=== PATIENT | female | born 1970 | race African-American/Black ===

== ENCOUNTER 2017-02-14 12:01 | Emergency (ER) | payer OTHER ==
[2017-02-14 12:11] VITALS: TEMP 98.2; BMI 37.1
[2017-02-14 16:49] LABS: MCHC 29.8 g/dl (32.0-36.0); MEAN PLT VOLUME 8.7 fl (7.5-11.1); PLATELET COUNT 326 K/MM3 (134-434); RDW 19.7 % (11.6-15.6)
[2017-02-14 16:51] LABS: MCH 18.7 pg (25.7-33.7)
--- NOTE | 2017-02-14 17:08 | PDOC ---
History of Present Illness - General History Source: Patient, Old Records Exam Limitations: No Limitations - History of Present Illness Initial Comments: 02/14/17 18:56 The patient is a 46 year old female, with a significant past medical history of hypertension, diabetes, uterine fibroids, and chronic anemia with hx of transfusion, who presents to the emergency department with bilateral lower extremity swelling and generalized weakness for the past week. She states that she has not been taking her blood pressure medications, as well as her water pill because she ran out and has not been following up with her PMD for the past 7 months. She notes that she usually works on her feet most of the day, and the swelling is worse at the end of a work day but resolves after she wakes up in the AM. She states that she ended her period last week but it has returned again this week, which worries her because of her history of anemia. The patient denies chest pain, shortness of breath, headache and dizziness. Denies fever, chills, nausea, vomit, diarrhea, rectal bleeding, bpr, and constipation. Denies dysuria, frequency, urgency and hematuria. Allergies: None Past surgical history: None reported Social history: No alcohol, tobacco or drug use reported <Marco Albarado - Last Filed: 02/14/17 18:56> <Osman Walton - Last Filed: 02/14/17 19:24> - General Chief Complaint: Edema Stated Complaint: WEAKNESS, EDEMA TO LOWER EXTREMITIES Time Seen by Provider: 02/14/17 16:15 Past History <Marco Albarado - Last Filed: 02/14/17 18:56> - Past Medical History Anemia: No (TRANSFUSION NOVEMBER 2014) Asthma: No Cancer: No Cardiac Disorders: No CVA: No COPD: No CHF: No Dementia: No Diabetes: Yes GI Disorders: No Disorders: No HTN: Yes Hypercholesterolemia: No Liver Disease: No Seizures: No Thyroid Disease: No - Surgical History Abdominal Surgery: No Appendectomy: No Cardiac Surgery: No Cholecystectomy: No Lung Surgery: No Neurologic Surgery: No Orthopedic Surgery: No - Psycho/Social/Smoking Cessation Hx Anxiety: No Suicidal Ideation: No Smoking History: Never smoked Information on smoking cessation initiated: No Hx Alcohol Use: No Drug/Substance Use Hx: No Substance Use Type: None <Osman Walton - Last Filed: 02/14/17 19:24> - Past Medical History Allergies/Adverse Reactions: Allergies Allergy/AdvReac Type Severity Reaction Status Date / Time No Known Allergies Allergy Verified 02/14/17 12:11 Home Medications: Ambulatory Orders Budesonide/Formeterol Fumarate [SYMBICORT 160/4.5mcg -] 1 inh PO BID 03/10/15 Glyburide/Metformin HCl [Glucovance 2.5-500 mg Tablet] 1 each PO BID 03/10/15 Albuterol Sulfate Inhaler - [Ventolin HFA Inhaler -] 1 - 2 inh PO QID #1 inhaler 03/12/15 Ferrous Sulfate [Feosol] 325 mg PO BID #60 tab 03/12/15 Hydrochlorothiazide [Hctz -] 25 mg PO DAILY #30 tablet 03/12/15 Metoprolol Succinate [Toprol XL -] 200 mg PO DAILY #30 tab.sr.24h 03/12/15 Guaifenesin Dm [Robitussin Dm -] 10 ml PO Q6H PRN #1 bottle 02/14/17 Hydrochlorothiazide 25 mg PO DAILY #30 tablet 02/14/17 Losartan Potassium [Cozaar -] 50 mg PO DAILY #30 tablet 02/14/17 Metformin HCl 500 mg PO BID #60 tablet 02/14/17 Review of Systems - Review of Systems Able to Perform ROS?: Yes Comments:: 02/14/17 18:56 CONSTITUTIONAL: Reported: Generalized weakness. No reported: Fever, Chills, Diaphoresis, Malaise, Loss of Appetite HEENT: No reported: Rhinorrhea, Nasal Congestion, Throat Pain, Throat Swelling, Difficulty Swallowing, Mouth Swelling, Ear Pain, Eye Pain, Visual Changes CARDIOVASCULAR: No reported: Chest Pain, Syncope, Palpitations, Irregular Heart Rate, Lightheadedness, Peripheral Edema RESPIRATORY: No reported: Cough, Shortness of Breath, SOB with Exertion, Orthopnea, Wheezing , Stridor, Hemoptysis GASTROINTESTINAL: No reported: Abdominal pain, Abdominal Distension, Nausea, Vomiting, Diarrhea, Constipation, Melena, Hematochezia GENITOURINARY: No reported: Dysuria, Frequency, Urgency, Hesitancy, Flank Pain, Genital Pain MUSCULOSKELETAL: No reported: Myalgia, Arthralgia, Joint Swelling, Back pain, Neck Pain EXTREMITIES: Reported: Bilateral lower extremity swelling. SKIN: No reported: Rash, Itching, Pallor HEMEATOLOGIC/IMMUNOLOGIC: No reported: Easy Bleeding, Easy Bruising, Lymphadenopathy, Frequent infections ENDOCRINE: No reported: Unexplained Weight Gain, Unexplained Weight Loss, Heat Intolerance , Cold Intolerance NEUROLOGIC: No reported: Headache, Focal Weakness, Paresthesias, Vertigo, Lightheadedness, Unsteady Gait, Seizure, Mental Status Changes, Incontinence PSYCHIATRIC: No reported: Anxiety, Depression <Marco Albarado - Last Filed: 02/14/17 18:56> *Physical Exam - Vital Signs Last Vital Signs Temp Pulse Resp BP Pulse Ox 98.2 F 91 H 18 198/100 100 02/14/17 12:06 02/14/17 12:06 02/14/17 12:06 02/14/17 12:06 02/14/17 12:06 - Physical Exam Comments: 02/14/17 18:56 GENERAL: The patient is awake, alert, and fully oriented, Nontoxic - in no acute distress. HEAD: Normocephalic, atraumatic. EYES: extraocular movements intact, sclera anicteric, conjunctiva clear. ENT: Normal voice, Moist mucous membranes. NECK: Normal range of motion, supple LUNGS: Breath sounds equal, clear to auscultation bilaterally. No wheezes, no rhonchi, no rales. HEART: Regular rate and rhythm, without murmur, rub or gallop. ABDOMEN: Soft, nontender, normoactive bowel sounds. No guarding, no rebound.No CVA tenderness EXTREMITIES: Normal range of motion, pitting edema bl to knees. No clubbing or cyanosis. No cords, erythema, or tenderness. NEUROLOGICAL: No facial assymetry, Normal speech, movinga ll 4 extremities s[ ontaneously and symmetrically. PSYCH: Normal mood, normal affect. SKIN: Warm, Dry, normal turgor, <Marco Albarado - Last Filed: 02/14/17 18:56> - Vital Signs Last Vital Signs Temp Pulse Resp BP Pulse Ox 98.2 F 91 H 18 198/100 100 02/14/17 12:06 02/14/17 12:06 02/14/17 12:06 02/14/17 12:06 02/14/17 12:06 <Osman Walton - Last Filed: 02/14/17 19:24> Heart Score/ECG Review - ECG Impressions Comment:: 02/14/17 19:22 Twelve-lead EKG was performed and reviewed by me. There is normal sinus rhythm with a normal rate. Rate of [address] changes suggestive of acute ischemia <Osman Walton - Last Filed: 02/14/17 19:24> ED Treatment Course - LABORATORY CBC & Chemistry Diagram: 02/14/17 16:21 02/14/17 16:21 - ADDITIONAL ORDERS Additional order review: Laboratory Results 02/14/17 16:21 Sodium 139 Potassium 4.9 Chloride 107 Carbon Dioxide 22 Anion Gap 10 BUN 12 Creatinine 1.2 H Creat Clearance w eGFR 48.36 Random Glucose 238 H D Calcium 8.3 L Total Bilirubin 0.6 AST 31 ALT 36 Alkaline Phosphatase 283 H D Total Protein 7.0 Albumin 2.9 L D 02/14/17 16:21 RBC 3.99 MCV 63.0 L MCHC 29.8 L RDW 19.7 H D MPV 8.7 Neutrophils % 61.0 Lymphocytes % 22.0 D Monocytes % 12.0 H Eosinophils % 0.0 D <Marco Albarado - Last Filed: 02/14/17 18:56> - LABORATORY CBC & Chemistry Diagram: 02/14/17 16:21 02/14/17 16:21 - ADDITIONAL ORDERS Additional order review: 02/14/17 16:21 RBC 3.99 MCV 63.0 L MCHC 29.8 L RDW 19.7 H D MPV 8.7 Neutrophils % Y Lymphocytes % Y <Osman Walton - Last Filed: 02/14/17 19:24> Medical Decision Making - Medical Decision Making 02/14/17 18:51 pt presenting with le edema been off her htn and meds for several months pts labs reviewed noted for mild anemia will start pt back on her htn, dm meds will have pt fu with PMD I discussed the physical exam findings, ancillary test results and final diagnoses with the patient. I answered all of the patient's questions. The patient was satisfied with the care received and felt comfortable with the discharge plan and treatment plan. The patient will call their primary care physician within 24 hours to arrange follow-up and will return to the Emergency Department with any new, persistent or worsening symptoms. A portion of this note was documented by scribe services under my direction. I have reviewed the details of the note, within reason, and agree with the documentation with the following case summary and management plan written by me <Osman Walton - Last Filed: 02/14/17 19:24> *DC/Admit/Observation/Transfer - Attestations Scribe Attestion: 02/14/17 18:56 Documentation prepared by Marco Albarado, acting as medical education specialist for Osman Walton MD <Marco Albarado - Last Filed: 02/14/17 18:56> - Discharge Dispostion Admit: No <Osman Walton - Last Filed: 02/14/17 19:24> Diagnosis at time of Disposition: Anemia Qualifiers: Anemia type: unspecified type Qualified Code(s): D64.9 - Anemia, unspecified HTN (hypertension) Qualifiers: Hypertension type: essential hypertension Qualified Code(s): I10 - Essential ( primary) hypertension - Discharge Dispostion Disposition: HOME Condition at time of disposition: Improved - Prescriptions Prescriptions: Losartan Potassium [Cozaar -] 50 mg PO DAILY #30 tablet Hydrochlorothiazide 25 mg PO DAILY #30 tablet Metformin HCl 500 mg PO BID #60 tablet Guaifenesin Dm [Robitussin Dm -] 10 ml PO Q6H PRN #1 bottle PRN Reason: Cough - Referrals Referrals: [facility] [Provider Group] - Patient Instructions Printed Discharge Instructions: DI for High Blood Pressure Additional Instructions: Return to the emergency department immediately with ANY new, persistent or worsening symptoms. You MUST call and follow up with your doctor in 1 week for further evaluation of your symptoms. Results were discussed with you. Please make sure your doctor reviews the results of your emergency evaluation. Print Language: FRENCH
[2017-02-14 17:18] LABS: ALBUMIN 2.9 g/dl (3.4-5.0); CALCIUM 8.3 mg/dL (8.5-10.1); COCKROFT - GAULT 96.475; CREATININE 1.2 mg/dL (0.55-1.02)
[2017-02-14 17:21] LABS: BILIRUBIN,TOTAL 0.6 mg/dL (0.2-1.0)
[2017-02-14 17:58] LABS: ANISOCYTOSIS 1+; HYPOCHROMIA 3+; MICROCYTOSIS 2+; POLYCHROMASIA 1+
[2017-02-14 19:20] VITALS: BP 190/108; PULSE 89
[2017-02-14] MEDS ORDERED: LOSARTAN POTASSIUM 50 MG TABLET (FP) PO ONE (19:20)
[2017-02-14] MEDS ORDERED: HYDROCHLOROTHIAZIDE 25 MG TABLET (FP) PO ONE (19:20)
[2017-02-14] MEDS ORDERED: HYDROCHLOROTHIAZIDE 25 MG TABLET (FP) ONE (19:21)
[2017-02-14] MEDS ORDERED: LOSARTAN POTASSIUM 25 MG TABLET ONE (19:22)
--- NOTE | 2017-02-15 11:48 | EKG ---
Test Reason : Blood Pressure : / mmHG Vent. Rate : 090 BPM Atrial Rate : 090 BPM P-R Int : 176 ms QRS Dur : 082 ms QT Int : 388 ms P-R-T Axes : -07 084 045 degrees QTc Int : 474 ms POOR DATA QUALITY, INTERPRETATION MAY BE ADVERSELY AFFECTED NORMAL SINUS RHYTHM NORMAL ECG WHEN COMPARED WITH ECG OF 12-MAR-2015 12:21, NO SIGNIFICANT CHANGE WAS FOUND Confirmed by BETH AGARWAL, MEDHAT ([id number]) on 02/15/2017 11:48:37 AM Referred By: Confirmed By:MEDHAT CAMPOS MD
== END 2017-02-14 19:27 | disposition home or self-care (01) ==
LOC: JER 12:01
DX: I10 Essential (primary) hypertension (principal); D64.9 Anemia, unspecified; Z91.14 Patient's other noncompliance with medication regimen; E11.9 Type 2 diabetes mellitus without complications; Z79.84 Long term (current) use of oral hypoglycemic drugs
CPT/HCPCS: 36415; 80053; 84703; 85025; 93005; 93010; 99282-25

== ENCOUNTER 2017-03-14 11:26 | Inpatient (IN) | payer OTHER ==
[2017-03-14 11:33] VITALS: BMI 37.8
[2017-03-14] MEDS ORDERED: ENALAPRILAT DIHYDRATE 1.25 MG/1 ML VIAL IVPB ONE ×2 (13:08→15:30)
[2017-03-14] MEDS ORDERED: FUROSEMIDE 40 MG/4 ML INJECTABLE VIAL IVPUSH ONE (13:08)
--- NOTE | 2017-03-14 13:09 | PDOC ---
*Physical Exam - Vital Signs Last Vital Signs Temp Pulse Resp BP Pulse Ox 97.9 F 87 18 174/106 100 03/14/17 11:29 03/14/17 11:29 03/14/17 11:29 03/14/17 11:29 03/14/17 11:29 Medical Decision Making - Medical Decision Making 03/14/17 13:08 Patient seen and evaluated with the nurse practitioner. I agree with the overall evaluation, assessment, and management with the following summary of visit: 47-year-old female sent for elevated blood pressure, anasarca, anemia. Full workup, blood pressure control, admission.
[2017-03-14 13:38] LABS: MCH 22.5 pg (25.7-33.7); MCHC 31.5 g/dl (32.0-36.0); MEAN CELL VOLUME 71.6 fl (80-96); MEAN PLT VOLUME 9.3 fl (7.5-11.1); PLATELET COUNT 243 K/MM3 (134-434); RDW 27.6 % (11.6-15.6); WHITE BLOOD COUNT 5.2 K/mm3 (4.0-10.0)
[2017-03-14 13:51] LABS: ALBUMIN 3.1 g/dl (3.4-5.0); ANION GAP 9 (8-16); BILIRUBIN,TOTAL 0.8 mg/dL (0.2-1.0); CALCIUM 8.9 mg/dL (8.5-10.1); CO2 25 mmol/L (21-32); CREATININE 1.4 mg/dL (0.55-1.02); GLUCOSE,RANDOM 278 mg/dL (74-106); SGPT/ALT 36 U/L (12-78); TOT PROT 7.9 g/dl (6.4-8.2)
[2017-03-14 13:55] LABS: ALK PHOS 475 U/L (45-117); TROPONIN I < 0.02 ng/ml (0.00-0.05)
[2017-03-14 14:02] LABS: SGOT/AST 36 U/L (15-37)
[2017-03-14] MEDS ORDERED: ENALAPRILAT DIHYDRATE 2.5 MG/2 ML VIAL IVPB ONE ×2 (14:32→15:41)
[2017-03-14] MEDS ORDERED: FUROSEMIDE 40 MG/4 ML INJECTABLE VIAL ONE (14:33)
--- NOTE | 2017-03-14 14:33 | PDOC ---
History of Present Illness - General Chief Complaint: Edema Stated Complaint: PRESSURE PROBLEM (PCP SENT) Time Seen by Provider: 03/14/17 11:53 History Source: Patient Exam Limitations: No Limitations - History of Present Illness Initial Comments: 03/14/17 14:28 47-year-old female presents to the emergency room with complaints of worsening lower extremity edema associated with continual high blood pressure despite taking her medication. Patient states was seen here a few weeks ago for the same and was sent home to start her blood pressure and diabetic meds since she has been noncompliant for months. Patient states also went to see her HELP DESK TECHNICIAN secondary to vaginal bleeding since December that stopped about one week ago. Patient also states went to her drug counselor today to have an echo but had a blood pressure of 240/140 and was sent directly to the ER. Patient does state had blood work done last week by Dr. Hickey who she has an appointment with tomorrow and was also prescribed Lasix that she was supposed to start today but didn't. Patient has no complaints of shortness of breath, chest pain, dizziness , weakness, abdominal pain or nausea. Timing/Duration: getting worse Severity: moderate Associated Symptoms: reports: denies symptoms Past History - Past Medical History Allergies/Adverse Reactions: Allergies Allergy/AdvReac Type Severity Reaction Status Date / Time No Known Allergies Allergy Verified 03/14/17 11:33 Home Medications: Ambulatory Orders Ferrous Sulfate [Feosol] 325 mg PO BID #60 tab 03/12/15 Amlodipine Besylate [Norvasc -] 5 mg PO DAILY #30 tablet 03/22/17 Furosemide Injection [Lasix Injection -] 40 mg IVPUSH DAILY vial 03/22/17 Insulin (Levemir) [Levemir Vial] 15 units SQ BID #15 syringe 03/22/17 Losartan Potassium [Cozaar -] 50 mg PO DAILY #30 tablet MDD 1 03/22/17 Metoprolol Succinate [Toprol XL -] 50 mg PO DAILY #30 tab 03/22/17 Vitamin E - 800 unit PO AM #30 cap 03/22/17 Anemia: Yes (TRANSFUSION NOVEMBER 2014) Asthma: No Cancer: No Cardiac Disorders: No CVA: No COPD: No CHF: No Dementia: No Diabetes: Yes GI Disorders: No Disorders: No HTN: Yes Hypercholesterolemia: No Liver Disease: No Seizures: No Thyroid Disease: No - Surgical History Abdominal Surgery: No Appendectomy: No Cardiac Surgery: No Cholecystectomy: No Lung Surgery: No Neurologic Surgery: No Orthopedic Surgery: No - Psycho/Social/Smoking Cessation Hx Anxiety: No Suicidal Ideation: No Smoking History: Never smoked Hx Alcohol Use: No Drug/Substance Use Hx: No Substance Use Type: None Patient Lives Alone: No Lives with/in: spouse/SO Review of Systems - Review of Systems Able to Perform ROS?: Yes Constitutional: No: Symptoms Reported HEENTM: No: Symptoms Reported Respiratory: No: Symptoms reported Cardiac (ROS): Yes: Edema ABD/GI: No: Symptoms Reported Musculoskeletal: No: Symptoms Reported Integumentary: No: Symptoms Reported Neurological: No: Symptoms reported Endocrine: No: Symptoms Reported Hematologic/Lymphatic: No: Anemia *Physical Exam - Vital Signs Last Vital Signs Temp Pulse Resp BP Pulse Ox 97.9 F 83 16 187/110 100 03/14/17 11:29 03/14/17 13:00 03/14/17 13:00 03/14/17 13:00 03/14/17 13:00 - Physical Exam General Appearance: Yes: Nourished, Appropriately Dressed. No: Apparent Distress HEENT: positive: EOMI, JERED, TMs Normal, Pharynx Normal. negative: Pale Conjunctivae Neck: positive: Normal Thyroid, Supple, Other (no jvd) Respiratory/Chest: positive: Lungs Clear, Normal Breath Sounds. negative: Respiratory Distress, Accessory Muscle Use Cardiovascular: positive: Regular Rhythm, Regular Rate. negative: Murmur Gastrointestinal/Abdominal: positive: Soft. negative: Tenderness Musculoskeletal: negative: CVA Tenderness Extremity: positive: Normal Capillary Refill, Other (noted 3+ nonpitting edema to BLE at the knees extending to her lower abdomen). negative: Pedal Edema Integumentary: positive: Normal Color, Warm, Moist Neurologic: positive: Motor Strength 5/5 (ambulatory) Deep Tendon Reflexes: Knee (L): 2+, Knee (R): 2+ Heart Score/ECG Review - History History: Slightly suspicious - Electrocardiogram EKG: Normal - Age Age: 45-65 - Risk Factors Risk Factors Heart Score: Yes Hx Hypertension, Yes Hx Diabetes Based on the list above the patient has:: 1-2 risk factors - Troponin Troponin: </= normal limit - Score Heart Score - Total: 2 - ECG Intrepretation Rhythm: Regular Rhythm (nsr at 86. No acute findings) ED Treatment Course - LABORATORY CBC & Chemistry Diagram: 03/22/17 05:45 03/22/17 05:45 - ADDITIONAL ORDERS Additional order review: Laboratory Results 03/14/17 03/14/17 13:06 13:06 Sodium 136 Potassium 5.0 Chloride 102 Carbon Dioxide 25 Anion Gap 9 BUN 21 H D Creatinine 1.4 H Creat Clearance w eGFR 40.31 Random Glucose 278 H Calcium 8.9 Total Bilirubin 0.8 D AST 36 ALT 36 Alkaline Phosphatase 475 H D Creatine Kinase 108 Troponin I < 0.02 B-Natriuretic Peptide 1559.09 H Total Protein 7.9 Albumin 3.1 L Blood Type O POSITIVE Antibody Screen Negative 03/14/17 13:06 RBC 4.17 MCV 71.6 L MCHC 31.5 L RDW 27.6 H MPV 9.3 Neutrophils % 44.6 D Lymphocytes % 43.7 H D Monocytes % 6.2 Eosinophils % 4.3 D Basophils % 1.2 - RADIOLOGY Radiology Studies Ordered: Category Date Time Status DUPLEX VASCUL US-2LEGS [US] Stat Ultrasound 03/14/17 12:46 Taken Medical Decision Making - Critical Care Time Total Critical Care Time (minutes): 35 Critical Care Statement: The care of this patient involved high complexity decision making to prevent further life threatening deterioration of the patient 's condition and/or to evalute & treat vital organ system(s) failure or risk of failure. - Medical Decision Making 03/14/17 13:33 Patient sent here by drug counselor for hypertension urgency which she had a blood pressure 240/140 in the ED. Patient recently began her blood pressure and diabetic meds after being told that her blood pressure was elevated. Patient today had went to have her ultrasound of her pelvis secondary to prolonged vaginal bleeding and hasn't been with her PCP tomorrow. Patient concern for hypertensive urgency, CHF, and endorgan damage. Since patient took her medications this morning patient will be given 40 mg of Lasix IV push and enalapril IV 03/14/17 14:40 Laboratory Tests 03/11/15 03/12/15 03/12/15 05:45 05:40 05:40 WBC Hgb 9.2 L Hct MCV Plt Count Neutrophils % Lymphocytes % Sodium Potassium Chloride Carbon Dioxide Anion Gap BUN Creatinine 1.1 Random Glucose Alkaline Phosphatase B-Natriuretic Peptide 2352.68 H Albumin 05/16/17 05/16/17 06/13/17 16:21 16:21 13:06 WBC 5.2 Hgb 7.5 L D 9.4 L D Hct 29.9 L D MCV 71.6 L Plt Count 243 D Neutrophils % 44.6 D Lymphocytes % 43.7 H D Sodium Potassium Chloride Carbon Dioxide Anion Gap BUN Creatinine 1.2 H Random Glucose 238 H D Alkaline Phosphatase B-Natriuretic Peptide Albumin 03/14/17 13:06 WBC Hgb Hct MCV Plt Count Neutrophils % Lymphocytes % Sodium 136 Potassium 5.0 Chloride 102 Carbon Dioxide 25 Anion Gap 9 BUN 21 H D Creatinine 1.4 H Random Glucose 278 H Alkaline Phosphatase 475 H D B-Natriuretic Peptide 1559.09 H Albumin 3.1 L Call placed to the patient's PCP Dr. Hickey to discuss admission. 03/14/17 15:09 Patient received a second dose of 0.625 mg of enalapril IV push secondary to BP of 188/102. If patient remains elevated and 20 minutes will administer clonidine. Dr. Hickey admits to Dr. Ramos. Call placed 2 to service for admission. 03/14/17 17:[address] Quintanilla. And states the consult Dr. John caro drug counselor since patient's drug counselor does not come here and to order an echocardiogram. He also recommends upgrade to telemetry in case patient requires IV push medications to control her blood pressure 0 *DC/Admit/Observation/Transfer Diagnosis at time of Disposition: Hypertensive urgency, Anasarca - Discharge Dispostion Disposition: HOME Condition at time of disposition: Improved Admit: Yes - Prescriptions - Referrals
--- NOTE | 2017-03-14 15:21 | EKG ---
Test Reason : Blood Pressure : / mmHG Vent. Rate : 086 BPM Atrial Rate : 086 BPM P-R Int : 156 ms QRS Dur : 078 ms QT Int : 384 ms P-R-T Axes : 082 089 053 degrees QTc Int : 459 ms NORMAL SINUS RHYTHM NORMAL ECG WHEN COMPARED WITH ECG OF 14-FEB-2017 16:38, NO SIGNIFICANT CHANGE WAS FOUND Confirmed by ОЛЕГ ELLISON MD ([id number]) on 03/14/2017 3:21:36 PM Referred By: Confirmed By:ОЛЕГ ELLISON MD
[2017-03-14] MEDS ORDERED: cloNIDine HCL 0.1 MG TABLET PO ONE (15:30)
[2017-03-14] MEDS ORDERED: cloNIDine HCL 0.1 MG TABLET ONE (15:41)
[2017-03-14 17:13] LABS: URINE APPEARANCE CLEAR; URINE BILIRUBIN NEGATIVE (NEGATIVE); URINE COLOR STRAW; URINE GLUCOSE (UA) 3+ (NEGATIVE); URINE KETONE NEGATIVE (NEGATIVE); URINE LEUK ESTERASE NEGATIVE (NEGATIVE); URINE NITRITE NEGATIVE (NEGATIVE); URINE PROTEIN NEGATIVE (NEGATIVE); URINE UROBILINOGEN NEGATIVE E.U./dl (0.2-1.0)
[2017-03-14 17:19] LABS: URINE BLOOD 2+ (NEGATIVE)
[2017-03-14 17:24] LABS: URINE RBC 2 /hpf (0-3); URINE WBC <1 /hpf (3-5)
[2017-03-14] MEDS ORDERED: LOSARTAN POTASSIUM 50 MG TABLET (FP) PO SCH (18:45)
[2017-03-14] MEDS ORDERED: LOSARTAN POTASSIUM 25 MG TABLET ONE ×2 (19:31→22:59)
[2017-03-14 20:08] LABS: PLATELET ESTIMATE ADEQUATE (NORMAL)
[2017-03-14 20:09] LABS: ANISOCYTOSIS 3+; HYPOCHROMIA 1+; POLYCHROMASIA OCC; TARGET CELLS 1+
[2017-03-14 20:29] LABS: TROPONIN I < 0.02 ng/ml (0.00-0.05)
[2017-03-14] MEDS ORDERED: FERROUS SO4 325 MG TABLET (FP) ONE (22:59)
[2017-03-14] MEDS ORDERED: HEPARIN NA (PORCINE) 5,000 UNITS/ML 1ML VIAL ONE (22:59)
[2017-03-15] MEDS: FERROUS SO4 325 MG TABLET (FP) PO SCH ×3 (00:50→22:21)
[2017-03-15] MEDS: HEPARIN NA (PORCINE) 5,000 UNITS/ML 1ML VIAL SQ SCH ×3 (00:50→22:21)
[2017-03-15 07:37] LABS: BASOPHIL 1.3 % (0-2.0); EOSINOPHIL 7.5 % (0-4.5); MCH 22.6 pg (25.7-33.7); MCHC 31.2 g/dl (32.0-36.0); MEAN CELL VOLUME 72.4 fl (80-96); MEAN PLT VOLUME 9.1 fl (7.5-11.1); NEUTROPHILS 70.2 % (42.8-82.8); PLATELET COUNT 227 K/MM3 (134-434); RDW 27.7 % (11.6-15.6); WHITE BLOOD COUNT 4.3 K/mm3 (4.0-10.0)
[2017-03-15] MEDS ORDERED: metFORMIN HCL 500 MG TABLET (FP) ONE (07:48)
[2017-03-15] MEDS: metFORMIN HCL 500 MG TABLET (FP) PO SCH ×2 (07:52→17:15)
[2017-03-15 08:03] LABS: ANION GAP 9 (8-16); CALCIUM 8.8 mg/dL (8.5-10.1); CO2 26 mmol/L (21-32)
[2017-03-15 08:09] LABS: ALK PHOS 433 U/L (45-117); BILIRUBIN,TOTAL 0.7 mg/dL (0.2-1.0); CHOLESTEROL 196 mg/dL (50-200); COCKROFT - GAULT 68.425; CREATININE 1.6 mg/dL (0.55-1.02); LDL CHOLESTEROL (ONLY SJRH) 69 mg/dL (5-100); SGOT/AST 25 U/L (15-37); SGPT/ALT 30 U/L (12-78); TOT PROT 7.4 g/dl (6.4-8.2); TROPONIN I < 0.02 ng/ml (0.00-0.05)
[2017-03-15 08:17] LABS: GLUCOSE,RANDOM 381 mg/dL (74-106)
[2017-03-15] MEDS ORDERED: LOSARTAN POTASSIUM 50 MG TABLET (FP) PO SCH ×2 (08:31→10:00)
--- NOTE | 2017-03-15 08:35 | HP ---
Admitting History and Physical - Admission History of Present Illness: 47-year-old female presents to the emergency room with complaints of worsening lower extremity edema associated with continual high blood pressure despite taking her medication. Patient states was seen here a few weeks ago for the same and was sent home to start her blood pressure and diabetic meds since she has been noncompliant for months. Patient states also went to see her SOLE STAINER and discharge secondary to vaginal bleeding since December that stopped about one week ago. Patient also stents went to her transition teacher today to have an echo but had a blood pressure of 240/140 and was sent directly to the ER. Patient does state had blood work done last week by Dr. Hickey who she has an appointment with tomorrow and was also prescribed Lasix that she was supposed to start today but didn't. Patient has no complaints of shortness of breath, chest pain, dizziness , weakness, abdominal pain or nausea. - Past Medical History Cardiovascular: Yes: HTN Pulmonary: Yes: Bronchitis ...LMP: 03/02/15 Heme/Onc: Yes: Anemia Infectious Disease: Yes: Other (Bronchitis) Endocrine: Yes: Diabetes Mellitus - Smoking History Smoking history: Never smoked - Alcohol/Substance Use Hx Alcohol Use: No Home Medications - Allergies Allergies/Adverse Reactions: Allergies Allergy/AdvReac Type Severity Reaction Status Date / Time No Known Allergies Allergy Verified 03/14/17 11:33 - Home Medications Home Medications: Ambulatory Orders Glyburide/Metformin HCl [Glucovance 2.5-500 mg Tablet] 1 each PO BID 03/10/15 Ferrous Sulfate [Feosol] 325 mg PO BID #60 tab 03/12/15 Metoprolol Succinate [Toprol XL -] 200 mg PO DAILY #30 tab.sr.24h 03/12/15 Hydrochlorothiazide 25 mg PO DAILY #30 tablet 02/14/17 Losartan Potassium [Cozaar -] 50 mg PO DAILY #30 tablet 02/14/17 Metformin HCl 500 mg PO BID #60 tablet 02/14/17 Review of Systems - Review of Systems Cardiovascular: denies: Chest Pain, Palpitations Respiratory: denies: SOB Gastrointestinal: denies: Abdominal Pain Neurological: denies: Change in LOC, Change in Speech Physical Examination Vital Signs: Vital Signs Temperature 97.8 F 03/15/17 04:00 Pulse Rate 88 03/15/17 04:00 Respiratory Rate 26 H 03/15/17 04:00 Blood Pressure 160/93 03/15/17 04:00 O2 Sat by Pulse Oximetry (%) 100 03/14/17 19:20 Neck: Yes: Supple Cardiovascular: Yes: Regular Rate and Rhythm Respiratory: Yes: Regular, CTA Bilaterally Gastrointestinal: Yes: Normal Bowel Sounds, Soft. No: Tenderness Edema: No Neurological: Yes: Alert, Oriented Labs: CBC, BMP 03/15/17 06:34 03/15/17 06:34 Imaging - Results Cat Scan: Report Reviewed Problem List - Problems (1) Hypertensive urgency Assessment/Plan: OBSERVE ON CURRENT MEDS ECHO CARDIO Code(s): I16.0 - HYPERTENSIVE URGENCY (2) Anemia Assessment/Plan: W/U ORDERED MONITOR Code(s): D64.9 - ANEMIA, UNSPECIFIED Qualifiers: Anemia type: unspecified type Qualified Code(s): D64.9 - Anemia, unspecified (3) Fibroid (bleeding) (uterine) Assessment/Plan: CHECK ON SOLE STAINER W/U Code(s): D25.9 - LEIOMYOMA OF UTERUS, UNSPECIFIED (4) Alkaline phosphatase elevation Assessment/Plan: GI US Code(s): R74.8 - ABNORMAL LEVELS OF OTHER SERUM ENZYMES (5) Renal insufficiency Assessment/Plan: CR 1.4 MONITOR ON MEDS US Code(s): N28.9 - DISORDER OF KIDNEY AND URETER, UNSPECIFIED
[2017-03-15] MEDS: METOPROLOL SUCCINATE 100 MG TAB.SR.24H (FP) PO SCH (09:50)
[2017-03-15] MEDS: HYDROCHLOROTHIAZIDE 25 MG TABLET (FP) PO SCH (09:50)
[2017-03-15] MEDS ORDERED: amLODIPine BESYLATE 5 MG TABLET (FP) ONE (09:56)
[2017-03-15] MEDS: amLODIPine BESYLATE 5 MG TABLET (FP) PO SCH (09:57)
[2017-03-15] MEDS: INSULIN SLIDING SCALE (NOVOLOG) 1 VIAL SQ SCH ×3 (12:08→22:31)
[2017-03-15] MEDS ORDERED: INSULIN (NOVOLOG) ASPART 100 UNITS/ML 10ML VIAL ONE ×2 (12:11→16:26)
--- NOTE | 2017-03-15 15:30 | CON.CARD ---
Consult Consult Specialty:: Cardiology Referred by:: Dr Quintanilla Reason for Consultation:: hypertension, edema - History of Present Illness Chief Complaint: edema, htn History of Present Illness: 47F obesity, HTN, NIDDM, chol, pulmonary hypertension on echo 2014 sees a management liaison not at [facility], has had some studies in the past but does not know all extent, admitted with severely elevated blood pressure and several weeks of worsening leg edema. No chest pain, sob, orthopnea, pnd. No palps, dizziness or syncope. Exercise tolerance is good. Echo 03/15/17 nlef, lae, zack mild mr severe TR, severe pulm htn >60mmHg mild PI Duplex 03/15/17 no DVT abd sono +ascites, enlarged liver. - History Source History Provided By: Patient, Medical Record Limitations to Obtaining History: No Limitations - Past Medical History Cardio/Vascular: Yes: HTN Pulmonary: Yes: Bronchitis ...LMP: 03/02/15 Infectious Disease: Yes: Other (Bronchitis) Endocrine: Yes: Diabetes Mellitus - Alcohol/Substance Use Hx Alcohol Use: No - Smoking History Smoking history: Never smoked Home Medications - Allergies Allergies/Adverse Reactions: Allergies Allergy/AdvReac Type Severity Reaction Status Date / Time No Known Allergies Allergy Verified 03/14/17 11:33 - Home Medications Home Medications: Ambulatory Orders Glyburide/Metformin HCl [Glucovance 2.5-500 mg Tablet] 1 each PO BID 03/10/15 Ferrous Sulfate [Feosol] 325 mg PO BID #60 tab 03/12/15 Metoprolol Succinate [Toprol XL -] 200 mg PO DAILY #30 tab.sr.24h 03/12/15 Hydrochlorothiazide 25 mg PO DAILY #30 tablet 02/14/17 Losartan Potassium [Cozaar -] 50 mg PO DAILY #30 tablet 02/14/17 Metformin HCl 500 mg PO BID #60 tablet 02/14/17 Vital Signs: Vital Signs Temperature 98.4 F 03/15/17 13:00 Pulse Rate 84 03/15/17 13:00 Respiratory Rate 20 03/15/17 13:00 Blood Pressure 165/79 03/15/17 13:00 O2 Sat by Pulse Oximetry (%) 97 03/15/17 09:00 Constitutional: Yes: Well Nourished, No Distress Eyes: Yes: WNL, Conjunctiva Clear, EOM Intact HENT: Yes: Atraumatic, Normocephalic Neck: Yes: Supple, Trachea Midline Respiratory: Yes: Regular, CTA Bilaterally Gastrointestinal: Yes: Normal Bowel Sounds, Abdomen, Obese, Distention Cardiovascular: Yes: Regular Rate and Rhythm JVD: Yes Carotid Bruit: No PMI: Non-Displaced Heart Sounds: Yes: S1, S2 Murmur: Yes: Grade 2 Edema: Yes Edema: LLE: 2+, RLE: 2+ Peripheral Pulses WNL: Yes - Other Data Labs, Other Data: CBC, BMP 03/15/17 06:34 03/15/17 06:34 Troponin, BNP 03/14/17 03/15/17 19:44 06:34 Troponin I < 0.02 < 0.02 Troponin, BNP 03/14/17 03/15/17 19:44 06:34 Troponin I < 0.02 < 0.02 Problem List - Problems (1) Pulmonary hypertension Assessment/Plan: Get old records from her management liaison for prior workup. Unclear mechanism. needs diuresis, would start IV lasix 40 mg bid. would get CTA to rule out PE and evaluate lung parenchyma. Code(s): I27.2 - OTHER SECONDARY PULMONARY HYPERTENSION (2) Hypertensive urgency Assessment/Plan: Increase losartan to 100 mg daily. continue diuresis. BP is improving. Code(s): I16.0 - HYPERTENSIVE URGENCY
--- NOTE | 2017-03-15 21:12 | CON.GI ---
Consult Consult Specialty:: GI Referred by:: Dr Quintanilla Reason for Consultation:: Anemia - History of Present Illness Chief Complaint: increasing LE edema and accelerated HTN History of Present Illness: 47 F with h/o poorly controlled diabetes, poorly controlled HTN, was seen by her manager helpdesk and sent to ER when she was noted to have BP 240/140/ I am called for elevated alk phos.-475 on admission. She states her conditions are poorly controlled because she stopped all of her meds. She tells me that she did this because she could not afford them although there are compliance issues in the past. A1C is 11.4. - History Source History Provided By: Patient, Medical Record Limitations to Obtaining History: No Limitations - Past Medical History Cardio/Vascular: Yes: HTN Pulmonary: Yes: Bronchitis ...LMP: 03/02/15 Infectious Disease: Yes: Other (Bronchitis) Endocrine: Yes: Diabetes Mellitus - Alcohol/Substance Use Hx Alcohol Use: No - Smoking History Smoking history: Never smoked Have you smoked in the past 12 months: No Home Medications - Allergies Allergies/Adverse Reactions: Allergies Allergy/AdvReac Type Severity Reaction Status Date / Time No Known Allergies Allergy Verified 03/14/17 11:33 - Home Medications Home Medications: Ambulatory Orders Glyburide/Metformin HCl [Glucovance 2.5-500 mg Tablet] 1 each PO BID 03/10/15 Ferrous Sulfate [Feosol] 325 mg PO BID #60 tab 03/12/15 Metoprolol Succinate [Toprol XL -] 200 mg PO DAILY #30 tab.sr.24h 03/12/15 Hydrochlorothiazide 25 mg PO DAILY #30 tablet 02/14/17 Losartan Potassium [Cozaar -] 50 mg PO DAILY #30 tablet 02/14/17 Metformin HCl 500 mg PO BID #60 tablet 02/14/17 Physical Exam-GI Vital Signs: Vital Signs Temperature 98.7 F 03/15/17 18:48 Pulse Rate 84 03/15/17 18:48 Respiratory Rate 20 03/15/17 18:48 Blood Pressure 165/79 03/15/17 18:48 O2 Sat by Pulse Oximetry (%) 100 03/15/17 18:48 Constitutional: Yes: Obese HENT: Yes: Normocephalic Neck: Yes: Supple Cardiovascular: Yes: Regular Rate and Rhythm Labs: CBC, BMP 03/15/17 06:34 03/15/17 06:34 Imaging - Results Other: Report Reviewed (echo: Severe tricuspid regurgitation. Increased RV pressure.) Assessment/Plan 47 F with above medical history. Called to evaluate increased alk phos. Possibilities include: - Hepatic steatosis: Liver enlarged and heterogeneous c/w fatty liver. - R heart failure: Patient has hepatomegaly likely secondary to congestion. Increased alk phos may be related. - R/O PBC-unlikely in this context but will check AMA as iot - May be unrelated to liver-isolated alk phos. Will check GGT and fractionate iso-enzymes. ? related to bone loss/renal osteodystrophy. Her GFR is low. - Med-related: Current meds not particularly hepatotoxic. Stop Fe for now. Trend LFTs Avoid heptotoxic meds Cardiac w/u in progress Diabetic control
--- NOTE | 2017-03-15 23:49 | CONSULT ---
Consult Consult Specialty:: endocrine Referred by:: dr.marji merrill Reason for Consultation:: diabetes mellitus uncontrolled - History of Present Illness Chief Complaint: high sugars History of Present Illness: 47-year-old female presents to the emergency room with complaints of worsening lower extremity edema associated with continual high blood pressure despite taking her medication. Patient was seen here a few weeks ago for the same and was sent home to start her blood pressure and diabetic meds since she has been noncompliant for months. Patient also went to see her MEDICAL FIELD REPRESENTATIVE and discharge secondary to vaginal bleeding since December that stopped about one week ago. Patient was seen by bottle cleaner for an echo but had a blood pressure of 240/140 and was sent directly to the ER. Patient did not have money for taking diabetic medication has had elevated blood sugars - Past Medical History Cardio/Vascular: Yes: HTN Pulmonary: Yes: Bronchitis ...LMP: 03/02/15 Infectious Disease: Yes: Other (Bronchitis) Endocrine: Yes: Diabetes Mellitus - Alcohol/Substance Use Hx Alcohol Use: No - Smoking History Smoking history: Never smoked Have you smoked in the past 12 months: No Home Medications - Allergies Allergies/Adverse Reactions: Allergies Allergy/AdvReac Type Severity Reaction Status Date / Time No Known Allergies Allergy Verified 03/14/17 11:33 - Home Medications Home Medications: Ambulatory Orders Glyburide/Metformin HCl [Glucovance 2.5-500 mg Tablet] 1 each PO BID 03/10/15 Ferrous Sulfate [Feosol] 325 mg PO BID #60 tab 03/12/15 Metoprolol Succinate [Toprol XL -] 200 mg PO DAILY #30 tab.sr.24h 03/12/15 Hydrochlorothiazide 25 mg PO DAILY #30 tablet 02/14/17 Losartan Potassium [Cozaar -] 50 mg PO DAILY #30 tablet 02/14/17 Metformin HCl 500 mg PO BID #60 tablet 02/14/17 Review of Systems - Review of Systems Constitutional: reports: Lethargy Eyes: reports: Blurred Vision HENT: reports: No Symptoms Neck: reports: No Symptoms Cardiovascular: reports: Shortness of Breath Respiratory: reports: Exercise Intolerance, SOB on Exertion Gastrointestinal: reports: Abdominal Pain, Constipation, Indigestion Genitourinary: reports: No Symptoms Breasts: reports: No Symptoms Reported Musculoskeletal: reports: Muscle Cramps, Muscle Weakness Endocrine: reports: Unexplained Weight Gain Physical Exam Vital Signs: Vital Signs Temperature 99 F 03/15/17 21:37 Pulse Rate 68 03/15/17 21:37 Respiratory Rate 20 03/15/17 21:37 Blood Pressure 151/81 03/15/17 21:37 O2 Sat by Pulse Oximetry (%) 100 03/15/17 18:48 Constitutional: Yes: Anxious Eyes: Yes: EOM Intact HENT: Yes: Normocephalic Neck: Yes: Trachea Midline Cardiovascular: Yes: Regular Rate and Rhythm, Murmur, S2 Respiratory: Yes: CTA Bilaterally Gastrointestinal: Yes: Normal Bowel Sounds ...Rectal Exam: Yes: Deferred Renal/: Yes: WNL Musculoskeletal: Yes: WNL Extremities: Yes: WNL Edema: No Integumentary: Yes: WNL Neurological: Yes: Alert, Oriented Labs: CBC, BMP 03/15/17 06:34 03/15/17 06:34 Problem List - Problems (1) Hypertensive urgency Code(s): I16.0 - HYPERTENSIVE URGENCY (2) Pulmonary hypertension Code(s): I27.2 - OTHER SECONDARY PULMONARY HYPERTENSION (3) Renal insufficiency Code(s): N28.9 - DISORDER OF KIDNEY AND URETER, UNSPECIFIED (4) Controlled diabetes mellitus with diabetic nephropathy, with long-term current use of insulin Code(s): E11.21 - TYPE 2 DIABETES MELLITUS WITH DIABETIC NEPHROPATHY Z79.4 - [facility] (CURRENT) USE OF INSULIN Qualifiers: Diabetes mellitus type: due to underlying condition Qualified Code(s ): E08.21 - Diabetes mellitus due to underlying condition with diabetic nephropathy; Z79.4 - superintendent terminal (current) use of insulin Assessment/Plan Current Active Problems Alkaline phosphatase elevation (Acute) Anasarca (Acute) Controlled diabetes mellitus with diabetic nephropathy, with long-term current use of insulin (Acute) Hypertensive urgency (Acute) Pulmonary hypertension (Acute) Pulmonary hypertension assoc with unclear multi-factorial mechanisms (Acute) Renal insufficiency (Acute) diabetes mellitus hyperglycemia nephropathy Abnormal Lab Results 03/15/17 03/15/17 03/15/17 06:34 06:34 06:34 Hgb 8.8 L Hct 28.3 L MCV 72.4 L MCHC 31.2 L RDW 27.7 H Monocytes % 11.9 H D Eosinophils % 7.5 H BUN 22 H Creatinine 1.6 H Random Glucose 381 H* D Hemoglobin A1c % 11.4 H Alkaline Phosphatase 433 H Albumin 3.0 L HDL Cholesterol 94 H D Laboratory Results - last 24 hr 03/15/17 03/15/17 03/15/17 06:00 06:34 06:34 WBC 4.3 RBC 3.91 Hgb 8.8 L Hct 28.3 L MCV 72.4 L MCHC 31.2 L RDW 27.7 H Plt Count 227 MPV 9.1 Neutrophils % 70.2 Lymphocytes % 9.1 D Monocytes % 11.9 H D Eosinophils % 7.5 H Basophils % 1.3 D Sodium 137 Potassium 4.9 Chloride 102 Carbon Dioxide 26 Anion Gap 9 BUN 22 H Creatinine 1.6 H Creat Clearance w eGFR 34.55 POC Glucometer Random Glucose 381 H* D Hemoglobin A1c % Calcium 8.8 Ferritin Cancelled 21.120 Total Bilirubin 0.7 AST 25 D ALT 30 Alkaline Phosphatase 433 H Creatine Kinase 63 Troponin I < 0.02 Total Protein 7.4 Albumin 3.0 L Triglycerides 56 Cholesterol 196 D Total LDL Cholesterol 69 HDL Cholesterol 94 H D 03/15/17 03/15/17 03/15/17 06:34 07:44 12:06 WBC RBC Hgb Hct MCV MCHC RDW Plt Count MPV Neutrophils % Lymphocytes % Monocytes % Eosinophils % Basophils % Sodium Potassium Chloride Carbon Dioxide Anion Gap BUN Creatinine Creat Clearance w eGFR POC Glucometer > [phone] Random Glucose Hemoglobin A1c % 11.4 H Calcium Ferritin Total Bilirubin AST ALT Alkaline Phosphatase Creatine Kinase Troponin I Total Protein Albumin Triglycerides Cholesterol Total LDL Cholesterol HDL Cholesterol 03/15/17 03/15/17 15:39 22:29 WBC RBC Hgb Hct MCV MCHC RDW Plt Count MPV Neutrophils % Lymphocytes % Monocytes % Eosinophils % Basophils % Sodium Potassium Chloride Carbon Dioxide Anion Gap BUN Creatinine Creat Clearance w eGFR POC Glucometer 216 166 Random Glucose Hemoglobin A1c % Calcium Ferritin Total Bilirubin AST ALT Alkaline Phosphatase Creatine Kinase Troponin I Total Protein Albumin Triglycerides Cholesterol Total LDL Cholesterol HDL Cholesterol plan: bgm achs novolog coverage sliding scale insulin novolog 70/30 20 units bid dc metformin renal involvement ck 24 hr urine vma,metanephrine 24 hr urine free cortisol
[2017-03-16 06:06] LABS: SERUM IRON 110 ug/dL (27-159); TOTAL IRON BINDING CAPACITY 318 ug/dL (250-450); UIBC 208 ug/dL (131-425)
[2017-03-16] MEDS: VITAMIN E 400 INTERNATIONAL-UNITS CAPSULE (FP) PO SCH (06:29)
[2017-03-16] MEDS: INSULIN (NOVOLOG MIX 70/30) 100 UNITS/ML MDV SQ SCH ×2 (06:29→17:12)
[2017-03-16] MEDS: INSULIN SLIDING SCALE (NOVOLOG) 1 VIAL SQ SCH ×4 (06:32→21:34)
[2017-03-16 09:24] LABS: BILIRUBIN,TOTAL 0.7 mg/dL (0.2-1.0); CALCIUM 9.1 mg/dL (8.5-10.1); COCKROFT - GAULT 73.015; CREATININE 1.5 mg/dL (0.55-1.02); TOT PROT 7.4 g/dl (6.4-8.2)
[2017-03-16] MEDS: amLODIPine BESYLATE 5 MG TABLET (FP) PO SCH (10:03)
[2017-03-16] MEDS: METOPROLOL SUCCINATE 100 MG TAB.SR.24H (FP) PO SCH (10:03)
[2017-03-16] MEDS: FERROUS SO4 325 MG TABLET (FP) PO SCH (10:03)
[2017-03-16] MEDS: HEPARIN NA (PORCINE) 5,000 UNITS/ML 1ML VIAL SQ SCH ×2 (10:03→21:32)
[2017-03-16] MEDS: HYDROCHLOROTHIAZIDE 25 MG TABLET (FP) PO SCH (10:03)
[2017-03-16] MEDS: LOSARTAN POTASSIUM 50 MG TABLET (FP) PO SCH (10:03)
--- NOTE | 2017-03-16 11:22 | PN ---
Progress Note, Physician Chief Complaint: patient in bed no CP no headache says abdomen size has decreased and her leg swelling also going down BP better - Current Medication List Current Medications: Active Medications Amlodipine Besylate (Norvasc -) 5 mg PO DAILY [facility] Last Admin: 03/16/17 10:03 Dose: 5 mg Ferrous Sulfate (Feosol -) 325 mg PO BID [facility] Last Admin: 03/16/17 10:03 Dose: Not Given Furosemide (Lasix Injection -) 40 mg IVPUSH DAILY [facility] Heparin Sodium (Porcine) (Heparin -) 5,000 unit SQ BID [facility] Last Admin: 03/16/17 10:03 Dose: 5,000 unit Insulin Aspart (Novolog Vial Sliding Scale -) 1 vial SQ ACHS [facility] PRN Reason: Protocol Last Admin: 03/16/17 06:32 Dose: Not Given Insulin Aspart (Novolog Mix 70/30 Vial) 20 units SQ BIDAC [facility] Last Admin: 03/16/17 06:29 Dose: 20 units Losartan Potassium (Cozaar -) 100 mg PO DAILY [facility] Last Admin: 03/16/17 10:03 Dose: 100 mg Metoprolol Succinate (Toprol Xl -) 200 mg PO DAILY [facility] Last Admin: 03/16/17 10:03 Dose: Not Given Vitamin E (Vitamin E -) 800 unit PO AM [facility] Last Admin: 03/16/17 06:29 Dose: 800 unit - Objective Vital Signs: Vital Signs Temperature 97.2 F L 03/16/17 05:48 Pulse Rate 67 03/16/17 05:48 Respiratory Rate 18 03/16/17 05:48 Blood Pressure 148/92 03/16/17 05:48 O2 Sat by Pulse Oximetry (%) 100 03/15/17 18:48 Constitutional: Yes: Calm Neck: Yes: Trachea Midline Cardiovascular: Yes: Regular Rate and Rhythm, S1, S2 Respiratory: Yes: CTA Bilaterally Gastrointestinal: Yes: Soft, Hernia (umbilical) Edema: Yes Neurological: Yes: Alert, Oriented Labs: CBC, BMP 03/15/17 06:34 03/16/17 05:48 Problem List - Problems (1) Alkaline phosphatase elevation Assessment/Plan: GGTP elevated GI follow up alk phos isoeztme ordered stop ferrous sulfate vitamin E daily Code(s): R74.8 - ABNORMAL LEVELS OF OTHER SERUM ENZYMES (2) Anasarca Assessment/Plan: iv lasix improving edema Code(s): R60.1 - GENERALIZED EDEMA (3) Hypertensive urgency Assessment/Plan: better urine studies sent to r/o pheochromocytoma Code(s): I16.0 - HYPERTENSIVE URGENCY (4) Pulmonary hypertension Assessment/Plan: ECHO noted inc RVSP cardio on board given inc the creatinine unlikely to get CTA Code(s): I27.2 - OTHER SECONDARY PULMONARY HYPERTENSION (5) Renal insufficiency Assessment/Plan: renal eval lasix iv monitor lytes renal sono Code(s): N28.9 - DISORDER OF KIDNEY AND URETER, UNSPECIFIED (6) Anemia Assessment/Plan: monitor h/h stop iron for now Code(s): D64.9 - ANEMIA, UNSPECIFIED Qualifiers: Anemia type: unspecified type Qualified Code(s): D64.9 - Anemia, unspecified (7) Diabetes Assessment/Plan: appreicate endo consult uncontorlled Hga1c 11.1 novolog bid stop metformin Code(s): E11.9 - TYPE 2 DIABETES MELLITUS WITHOUT COMPLICATIONS Qualifiers: Diabetes mellitus type: type 2
[2017-03-16] MEDS: FUROSEMIDE 40 MG/4 ML INJECTABLE VIAL IVPUSH SCH (12:00)
--- NOTE | 2017-03-16 12:38 | EKG ---
Test Reason : Blood Pressure : / mmHG Vent. Rate : 051 BPM Atrial Rate : 079 BPM P-R Int : 000 ms QRS Dur : 076 ms QT Int : 418 ms P-R-T Axes : 000 094 -46 degrees QTc Int : 385 ms ATRIAL FIBRILLATION WITH SLOW VENTRICULAR RESPONSE RIGHTWARD AXIS NONSPECIFIC T WAVE ABNORMALITY ABNORMAL ECG WHEN COMPARED WITH ECG OF 14-MAR-2017 20:40, ATRIAL FIBRILLATION HAS REPLACED JUNCTIONAL RHYTHM VENT. RATE HAS DECREASED BY 25 BPM QT HAS SHORTENED Confirmed by MICHELLE MCCALL MD ([id number]) on 03/16/2017 12:38:17 PM Referred By: Ozzy JAUREGUI Confirmed By:MICHELLE MCCALL MD
--- NOTE | 2017-03-16 14:57 | PN ---
Progress Note, Physician Chief Complaint: no complaints tele neg History of Present Illness: 47F obesity, HTN, NIDDM, chol, pulmonary hypertension on echo 2014 sees a construction scheduler not at [facility], has had some studies in the past but does not know all extent, admitted with severely elevated blood pressure and several weeks of worsening leg edema. No chest pain, sob, orthopnea, pnd. No palps, dizziness or syncope. Exercise tolerance is good. Echo 03/15/17 nlef, lae, zack mild mr severe TR, severe pulm htn >60mmHg mild PI Duplex 03/15/17 no DVT abd sono +ascites, enlarged liver. - Current Medication List Current Medications: Active Medications Amlodipine Besylate (Norvasc -) 5 mg PO DAILY [facility] Last Admin: 03/16/17 10:03 Dose: 5 mg Furosemide (Lasix Injection -) 40 mg IVPUSH DAILY [facility] Heparin Sodium (Porcine) (Heparin -) 5,000 unit SQ BID [facility] Last Admin: 03/16/17 10:03 Dose: 5,000 unit Insulin Aspart (Novolog Vial Sliding Scale -) 1 vial SQ ACHS [facility] PRN Reason: Protocol Last Admin: 03/16/17 12:46 Dose: Not Given Insulin Aspart (Novolog Mix 70/30 Vial) 20 units SQ BIDAC [facility] Last Admin: 03/16/17 06:29 Dose: 20 units Losartan Potassium (Cozaar -) 100 mg PO DAILY [facility] Last Admin: 03/16/17 10:03 Dose: 100 mg Metoprolol Succinate (Toprol Xl -) 200 mg PO DAILY [facility] Last Admin: 03/16/17 10:03 Dose: Not Given Vitamin E (Vitamin E -) 800 unit PO AM [facility] Last Admin: 03/16/17 06:29 Dose: 800 unit - Objective Vital Signs: Vital Signs Temperature 97.2 F L 03/16/17 05:48 Pulse Rate 67 03/16/17 05:48 Respiratory Rate 18 03/16/17 05:48 Blood Pressure 148/92 03/16/17 05:48 O2 Sat by Pulse Oximetry (%) 100 03/15/17 18:48 Constitutional: Yes: Well Nourished, No Distress, Calm Eyes: Yes: Conjunctiva Clear, EOM Intact HENT: Yes: Atraumatic, Normocephalic Neck: Yes: Supple, Trachea Midline Cardiovascular: Yes: Regular Rate and Rhythm Respiratory: Yes: Regular, CTA Bilaterally Gastrointestinal: Yes: Normal Bowel Sounds, Soft, Distention Extremities: Yes: WNL Edema: Yes Edema: LLE: 1+, RLE: 1+ Peripheral Pulses WNL: Yes Labs: CBC, BMP 03/15/17 06:34 03/16/17 05:48 Problem List - Problems (1) Pulmonary hypertension Assessment/Plan: Get old records from her construction scheduler for prior workup. Unclear mechanism. needs diuresis, continue IV lasix 40 mg daily. would get CTA to rule out PE and evaluate lung parenchyma if renal function improves. Can be done as outpatient. Code(s): I27.2 - OTHER SECONDARY PULMONARY HYPERTENSION (2) Hypertensive urgency Assessment/Plan: continue losartan 100 mg daily. continue diuresis. BP is stble. Code(s): I16.0 - HYPERTENSIVE URGENCY
--- NOTE | 2017-03-16 16:08 | CONSULT ---
Consult Consult Specialty:: Nephrology Reason for Consultation:: STEFFI - History of Present Illness Chief Complaint: sent in for hypertension History of Present Illness: Pt is a 47 year old female with pmhx of HTN, DM, hyperlipidemia, and pulm HTN who was sent to the hospital for elevated blood pressure. Pt says she felt fine and did not know that her BP was elevated. She say she stopped taking her blood pressure medications. She denies palpitations or chest pain. She denies headaches. I was called to evaluate her for elevated creatinine. She denies history of CKD. She denies dysuria or hematuria. She denies nsaid use. She complains of s lower extremity edema up to her thighs. - History Source History Provided By: Patient, Medical Record - Past Medical History Cardio/Vascular: Yes: HTN Pulmonary: Yes: Bronchitis ...LMP: 03/02/15 Infectious Disease: Yes: Other (Bronchitis) Endocrine: Yes: Diabetes Mellitus - Alcohol/Substance Use Hx Alcohol Use: No - Smoking History Smoking history: Never smoked Have you smoked in the past 12 months: No Home Medications - Allergies Allergies/Adverse Reactions: Allergies Allergy/AdvReac Type Severity Reaction Status Date / Time No Known Allergies Allergy Verified 03/14/17 11:33 - Home Medications Home Medications: Ambulatory Orders Glyburide/Metformin HCl [Glucovance 2.5-500 mg Tablet] 1 each PO BID 03/10/15 Ferrous Sulfate [Feosol] 325 mg PO BID #60 tab 03/12/15 Metoprolol Succinate [Toprol XL -] 200 mg PO DAILY #30 tab.sr.24h 03/12/15 Hydrochlorothiazide 25 mg PO DAILY #30 tablet 02/14/17 Losartan Potassium [Cozaar -] 50 mg PO DAILY #30 tablet 02/14/17 Metformin HCl 500 mg PO BID #60 tablet 02/14/17 Family Disease History - Family Disease History Other Family History: family hx of HTN Review of Systems - Review of Systems Constitutional: reports: No Symptoms Eyes: reports: No Symptoms HENT: reports: No Symptoms Neck: reports: No Symptoms Cardiovascular: reports: Edema Respiratory: reports: No Symptoms Gastrointestinal: reports: No Symptoms Genitourinary: reports: No Symptoms Musculoskeletal: reports: No Symptoms Endocrine: reports: No Symptoms Hematology/Lymphatic: reports: No Symptoms Psychiatric: reports: No Symptoms Physical Exam Vital Signs: Vital Signs Temperature 97.6 F 03/16/17 14:10 Pulse Rate 55 L 03/16/17 14:10 Respiratory Rate 18 03/16/17 14:10 Blood Pressure 137/77 03/16/17 14:10 O2 Sat by Pulse Oximetry (%) 100 03/16/17 10:00 Constitutional: Yes: Calm Eyes: Yes: Conjunctiva Clear HENT: Yes: Atraumatic Neck: Yes: Supple Cardiovascular: Yes: S1, S2 Respiratory: Yes: CTA Bilaterally Gastrointestinal: Yes: Normal Bowel Sounds, Soft, Abdomen, Obese Renal/: Yes: WNL Musculoskeletal: Yes: WNL Edema: Yes Edema: LLE: 2+, RLE: 2+ Neurological: Yes: Oriented Psychiatric: Yes: Oriented Labs: CBC, BMP 03/15/17 06:34 03/16/17 05:48 Laboratory Tests 02/14/17 03/14/17 03/15/17 16:21 13:06 06:34 Creatinine 1.2 H 1.4 H 1.6 H 03/16/17 05:48 Creatinine 1.5 H Laboratory Tests 12/17/14 03/10/15 03/11/15 10:55 13:15 05:45 Hgb Sodium Potassium Chloride Carbon Dioxide BUN Creatinine 1.1 1.1 1.1 Urine Color Urine Appearance Urine pH Ur Specific Sarita Urine Protein Urine Glucose (UA) Urine Ketones Urine Blood Urine Nitrite Urine Bilirubin Urine Urobilinogen Ur Leukocyte Esterase Hep Bs Antigen Hepatitis C Antibody 03/12/15 02/14/17 03/14/17 05:40 16:21 13:06 Hgb 9.4 L D Sodium Potassium Chloride Carbon Dioxide BUN Creatinine 1.1 1.2 H Urine Color Urine Appearance Urine pH Ur Specific Sarita Urine Protein Urine Glucose (UA) Urine Ketones Urine Blood Urine Nitrite Urine Bilirubin Urine Urobilinogen Ur Leukocyte Esterase Hep Bs Antigen Hepatitis C Antibody 03/14/17 03/14/17 03/15/17 13:06 16:30 06:34 Hgb 8.8 L Sodium Potassium Chloride Carbon Dioxide BUN Creatinine 1.4 H Urine Color Straw Urine Appearance Clear Urine pH 7.0 Ur Specific Sarita 1.015 Urine Protein Negative Urine Glucose (UA) 3+ H Urine Ketones Negative Urine Blood 2+ H Urine Nitrite Negative Urine Bilirubin Negative Urine Urobilinogen Negative Ur Leukocyte Esterase Negative Hep Bs Antigen Hepatitis C Antibody 06/03/16/17 03/16/17 06:34 05:48 05:48 Hgb Sodium 137 Potassium 4.8 Chloride 103 Carbon Dioxide 26 BUN 26 H Creatinine 1.6 H 1.5 H Urine Color Urine Appearance Urine pH Ur Specific Sarita Urine Protein Urine Glucose (UA) Urine Ketones Urine Blood Urine Nitrite Urine Bilirubin Urine Urobilinogen Ur Leukocyte Esterase Hep Bs Antigen Pending Hepatitis C Antibody 03/16/17 05:48 Hgb Sodium Potassium Chloride Carbon Dioxide BUN Creatinine Urine Color Urine Appearance Urine pH Ur Specific Sarita Urine Protein Urine Glucose (UA) Urine Ketones Urine Blood Urine Nitrite Urine Bilirubin Urine Urobilinogen Ur Leukocyte Esterase Hep Bs Antigen Hepatitis C Antibody Pending Imaging - Results Chest X-ray: Report Reviewed Ultrasound: Report Reviewed (morphologically normal kidneys) Problem List - Problems (1) Diabetes Code(s): E11.9 - TYPE 2 DIABETES MELLITUS WITHOUT COMPLICATIONS Qualifiers: Diabetes mellitus type: type 2 (2) Hypertensive urgency Code(s): I16.0 - HYPERTENSIVE URGENCY (3) Renal insufficiency Code(s): N28.9 - DISORDER OF KIDNEY AND URETER, UNSPECIFIED (4) Anemia Code(s): D64.9 - ANEMIA, UNSPECIFIED Qualifiers: Anemia type: unspecified type Qualified Code(s): D64.9 - Anemia, unspecified (5) HTN (hypertension) Code(s): I10 - ESSENTIAL (PRIMARY) HYPERTENSION Qualifiers: Hypertension type: essential hypertension Qualified Code(s): I10 - Essential (primary) hypertension Assessment/Plan Current Medications Generic Name Dose Route Start Last Admin Trade Name Freq PRN Reason Stop Dose Admin Amlodipine Besylate 5 mg 03/15/17 10:00 03/16/17 10:03 Norvasc - PO 5 mg DAILY [facility] Administration Furosemide 40 mg 03/16/17 10:00 03/16/17 12:00 Lasix Injection - IVPUSH 40 mg DAILY [facility] Administration Heparin Sodium (Porcine) 5,000 unit 03/14/17 22:00 03/16/17 10:03 Heparin - SQ 5,000 unit BID M[facility]UEL Administration Insulin Aspart 1 vial 03/15/17 11:00 03/16/17 17:11 Novolog Vial Sliding Scale - SQ Not Given ACHS [facility] Protocol Insulin Aspart 20 units 03/16/17 07:00 03/16/17 17:12 Novolog Mix 70/30 Vial SQ 20 units BIDAC [facility] Administration Losartan Potassium 100 mg 03/16/17 10:00 03/16/17 10:03 Cozaar - PO 100 mg DAILY [facility] Administration Metoprolol Succinate 200 mg 03/15/17 10:00 03/16/17 10:03 Toprol Xl - PO Not Given DAILY M[facility]UEL Vitamin E 800 unit 03/16/17 07:00 03/16/17 06:29 Vitamin E - PO 800 unit AM M[facility]UEL Administration Impression 1. STEFFI 2. hypertensive urgency 3. lower extremity edema 4. DM 5. obesity 6. microscopic hematuria Plan - cont with lasix - monitor renal function - repeat ua - blood pressure is improved - would not get any more aggressive with bp control, we should allow time for autoregulation - will need renal workup, will see in office Dr Yang
[2017-03-17] MEDS ORDERED: PT OWN MED DRAWER 7, Y5N ONE (06:16)
[2017-03-17] MEDS: INSULIN (NOVOLOG MIX 70/30) 100 UNITS/ML MDV SQ SCH ×2 (06:19→17:16)
[2017-03-17] MEDS: INSULIN SLIDING SCALE (NOVOLOG) 1 VIAL SQ SCH ×4 (06:19→21:35)
[2017-03-17] MEDS: VITAMIN E 400 INTERNATIONAL-UNITS CAPSULE (FP) PO SCH (06:19)
[2017-03-17 09:17] LABS: ANION GAP 12 (8-16); BILIRUBIN,TOTAL 0.7 mg/dL (0.2-1.0); CALCIUM 8.8 mg/dL (8.5-10.1); CO2 24 mmol/L (21-32); CREATININE 1.5 mg/dL (0.55-1.02); GLUCOSE,RANDOM 69 mg/dL (74-106); SGOT/AST 33 U/L (15-37); SGPT/ALT 34 U/L (12-78); TOT PROT 7.6 g/dl (6.4-8.2)
[2017-03-17 09:19] LABS: ALK PHOS 462 U/L (45-117)
[2017-03-17] MEDS: HEPARIN NA (PORCINE) 5,000 UNITS/ML 1ML VIAL SQ SCH ×2 (09:42→21:34)
[2017-03-17] MEDS: FUROSEMIDE 40 MG/4 ML INJECTABLE VIAL IVPUSH SCH (09:42)
[2017-03-17] MEDS: METOPROLOL SUCCINATE 100 MG TAB.SR.24H (FP) PO SCH (09:42)
[2017-03-17] MEDS: amLODIPine BESYLATE 5 MG TABLET (FP) PO SCH (09:43)
[2017-03-17] MEDS: LOSARTAN POTASSIUM 50 MG TABLET (FP) PO SCH (09:43)
--- NOTE | 2017-03-17 12:02 | PN ---
Progress Note, Physician Chief Complaint: patient is awake alert no distress and leg edema is getting better - Current Medication List Current Medications: Active Medications Amlodipine Besylate (Norvasc -) 5 mg PO DAILY [facility] [place] Last Admin: 03/17/17 09:43 Dose: 5 mg Furosemide (Lasix Injection -) 40 mg IVPUSH DAILY [facility] Last Admin: 03/17/17 09:42 Dose: 40 mg Heparin Sodium (Porcine) (Heparin -) 5,000 unit SQ BID [facility] [place] Last Admin: 03/17/17 09:42 Dose: 5,000 unit Insulin Aspart (Novolog Vial Sliding Scale -) 1 vial SQ ACHS [facility] PRN Reason: Protocol Last Admin: 03/17/17 06:19 Dose: Not Given Insulin Aspart (Novolog Mix 70/30 Vial) 20 units SQ BIDAC [facility] [place] Last Admin: 03/17/17 06:19 Dose: Not Given Losartan Potassium (Cozaar -) 100 mg PO DAILY [facility] [place] Last Admin: 03/17/17 09:43 Dose: 100 mg Metoprolol Succinate (Toprol Xl -) 200 mg PO DAILY [facility] [place] Last Admin: 03/17/17 09:42 Dose: 200 mg Vitamin E (Vitamin E -) 800 unit PO AM [facility] Last Admin: 03/17/17 06:19 Dose: 800 unit - Objective Vital Signs: Vital Signs Temperature 98 F 03/17/17 10:00 Pulse Rate 78 03/17/17 10:00 Respiratory Rate 18 03/17/17 10:00 Blood Pressure 150/92 03/17/17 10:00 O2 Sat by Pulse Oximetry (%) 100 03/16/17 21:00 Constitutional: Yes: Calm Neck: Yes: Trachea Midline Cardiovascular: Yes: Regular Rate and Rhythm, S1, S2 Respiratory: Yes: CTA Bilaterally Gastrointestinal: Yes: Soft, Hernia Edema: Yes (improving) Neurological: Yes: Alert, Oriented Labs: CBC, BMP 03/15/17 06:34 03/17/17 08:13 Problem List - Problems (1) Alkaline phosphatase elevation Assessment/Plan: GGTP elevated GI follow up today alk phos isoeztme ordered stop ferrous sulfate vitamin E daily Code(s): R74.8 - ABNORMAL LEVELS OF OTHER SERUM ENZYMES (2) Anasarca Assessment/Plan: iv lasix improving edema Code(s): R60.1 - GENERALIZED EDEMA (3) Hypertensive urgency Assessment/Plan: better urine studies sent to r/o pheochromocytoma Code(s): I16.0 - HYPERTENSIVE URGENCY (4) Pulmonary hypertension Assessment/Plan: ECHO noted inc RVSP cardio on board CTA cannot be done sec to inc creatiine Code(s): I27.2 - OTHER SECONDARY PULMONARY HYPERTENSION (5) Renal insufficiency Assessment/Plan: renal eval noted outpatient renal Follow up lasix iv monitor lytes renal sono Code(s): N28.9 - DISORDER OF KIDNEY AND URETER, UNSPECIFIED (6) Anemia Assessment/Plan: monitor h/h stop iron for now Code(s): D64.9 - ANEMIA, UNSPECIFIED Qualifiers: Anemia type: unspecified type Qualified Code(s): D64.9 - Anemia, unspecified (7) Diabetes Assessment/Plan: appreicate endo consult uncontorlled Hga1c 11.1 novolog bid stop metformin Code(s): E11.9 - TYPE 2 DIABETES MELLITUS WITHOUT COMPLICATIONS Qualifiers: Diabetes mellitus type: type 2 Assessment/Plan iv lasix Gi follow up today
--- NOTE | 2017-03-17 14:41 | PN ---
Progress Note, Physician Chief Complaint: no complaints tele neg History of Present Illness: 47F obesity, HTN, NIDDM, chol, pulmonary hypertension on echo 2014 sees a chief recordist not at [facility], has had some studies in the past but does not know all extent, admitted with severely elevated blood pressure and several weeks of worsening leg edema. No chest pain, sob, orthopnea, pnd. No palps, dizziness or syncope. Exercise tolerance is good. Echo 03/15/17 nlef, lae, zack mild mr severe TR, severe pulm htn >60mmHg mild PI Duplex 03/15/17 no DVT abd sono +ascites, enlarged liver. - Current Medication List Current Medications: Active Medications Amlodipine Besylate (Norvasc -) 5 mg PO DAILY [facility] Last Admin: 03/17/17 09:43 Dose: 5 mg Furosemide (Lasix Injection -) 40 mg IVPUSH DAILY [facility] Last Admin: 03/17/17 09:42 Dose: 40 mg Heparin Sodium (Porcine) (Heparin -) 5,000 unit SQ BID [facility] Last Admin: 03/17/17 09:42 Dose: 5,000 unit Insulin Aspart (Novolog Vial Sliding Scale -) 1 vial SQ [facility] PRN Reason: Protocol Last Admin: 03/17/17 12:02 Dose: Not Given Insulin Aspart (Novolog Mix 70/30 Vial) 20 units SQ BIDAC [facility] Last Admin: 03/17/17 06:19 Dose: Not Given Losartan Potassium (Cozaar -) 100 mg PO DAILY [facility] Last Admin: 03/17/17 09:43 Dose: 100 mg Metoprolol Succinate (Toprol Xl -) 200 mg PO DAILY [facility] Last Admin: 03/17/17 09:42 Dose: 200 mg Vitamin E (Vitamin E -) 800 unit PO AM [facility] Last Admin: 03/17/17 06:19 Dose: 800 unit - Objective Vital Signs: Vital Signs Temperature 98 F 03/17/17 10:00 Pulse Rate 78 03/17/17 10:00 Respiratory Rate 18 03/17/17 10:00 Blood Pressure 150/92 03/17/17 10:00 O2 Sat by Pulse Oximetry (%) 100 03/16/17 21:00 Constitutional: Yes: No Distress, Obese Eyes: Yes: WNL HENT: Yes: Atraumatic, Normocephalic Neck: Yes: Supple, Trachea Midline Cardiovascular: Yes: Regular Rate and Rhythm Respiratory: Yes: Regular, CTA Bilaterally Gastrointestinal: Yes: Normal Bowel Sounds, Abdomen, Obese, Distention Edema: Yes Edema: LLE: Trace, RLE: Trace Peripheral Pulses WNL: Yes Labs: CBC, BMP 03/15/17 06:34 03/17/17 08:13 Problem List - Problems (1) Pulmonary hypertension Assessment/Plan: Get old records from her chief recordist for prior workup. Unclear mechanism. needs diuresis, continue IV lasix 40 mg daily. would get CTA to rule out PE and evaluate lung parenchyma if renal function improves. Can be done as outpatient. can also do VQ scan if needed, but this workup can be done by her chief recordist an an outpatient. will follow as needed. Code(s): I27.2 - OTHER SECONDARY PULMONARY HYPERTENSION (2) Hypertensive urgency Assessment/Plan: continue losartan 100 mg daily. continue diuresis. BP is stble. Code(s): I16.0 - HYPERTENSIVE URGENCY
--- NOTE | 2017-03-17 17:25 | PN ---
Progress Note, Physician History of Present Illness: Pt seen and examined at bedside. She is awake and alert. She denies shortness of breath. She still complains of lower extremity edema. - Current Medication List Current Medications: Active Medications Amlodipine Besylate (Norvasc -) 5 mg PO DAILY [facility] Last Admin: 03/17/17 09:43 Dose: 5 mg Furosemide (Lasix Injection -) 40 mg IVPUSH DAILY [facility] Last Admin: 03/17/17 09:42 Dose: 40 mg Heparin Sodium (Porcine) (Heparin -) 5,000 unit SQ BID [facility] Last Admin: 03/17/17 09:42 Dose: 5,000 unit Insulin Aspart (Novolog Vial Sliding Scale -) 1 vial SQ ACHS [facility] PRN Reason: Protocol Last Admin: 03/17/17 17:17 Dose: Not Given Insulin Aspart (Novolog Mix 70/30 Vial) 20 units SQ BIDAC [facility] Last Admin: 03/17/17 17:16 Dose: 20 units Losartan Potassium (Cozaar -) 100 mg PO DAILY [facility] Last Admin: 03/17/17 09:43 Dose: 100 mg Metoprolol Succinate (Toprol Xl -) 200 mg PO DAILY [facility] Last Admin: 03/17/17 09:42 Dose: 200 mg Vitamin E (Vitamin E -) 800 unit PO AM [facility] Last Admin: 03/17/17 06:19 Dose: 800 unit - Objective Vital Signs: Vital Signs Temperature 97.9 F 03/17/17 13:55 Pulse Rate 51 L 03/17/17 13:55 Respiratory Rate 20 03/17/17 13:55 Blood Pressure 135/73 03/17/17 13:55 O2 Sat by Pulse Oximetry (%) 98 03/17/17 09:00 Constitutional: Yes: Calm Eyes: Yes: Conjunctiva Clear HENT: Yes: Atraumatic Neck: Yes: Supple Cardiovascular: Yes: S1, S2 Respiratory: Yes: CTA Bilaterally Gastrointestinal: Yes: Soft, Abdomen, Obese Genitourinary: Yes: WNL Musculoskeletal: Yes: WNL Edema: Yes Edema: LLE: 2+, RLE: 2+ Neurological: Yes: Oriented Psychiatric: Yes: Oriented Labs: CBC, BMP 03/15/17 06:34 03/17/17 08:13 Problem List - Problems (1) Diabetes Code(s): E11.9 - TYPE 2 DIABETES MELLITUS WITHOUT COMPLICATIONS Qualifiers: Diabetes mellitus type: type 2 (2) Hypertensive urgency Code(s): I16.0 - HYPERTENSIVE URGENCY (3) Renal insufficiency Code(s): N28.9 - DISORDER OF KIDNEY AND URETER, UNSPECIFIED (4) Anemia Code(s): D64.9 - ANEMIA, UNSPECIFIED Qualifiers: Anemia type: unspecified type Qualified Code(s): D64.9 - Anemia, unspecified (5) HTN (hypertension) Code(s): I10 - ESSENTIAL (PRIMARY) HYPERTENSION Qualifiers: Hypertension type: essential hypertension Qualified Code(s): I10 - Essential (primary) hypertension Assessment/Plan Current Medications Generic Name Dose Route Start Last Admin Trade Name Freq PRN Reason Stop Dose Admin Amlodipine Besylate 5 mg 03/15/17 10:00 03/17/17 09:43 Norvasc - PO 5 mg DAILY [facility] Administration Furosemide 40 mg 03/16/17 10:00 03/17/17 09:42 Lasix Injection - IVPUSH 40 mg DAILY [facility] Administration Heparin Sodium (Porcine) 5,000 unit 03/14/17 22:00 03/17/17 09:42 Heparin - SQ 5,000 unit BID [facility] Administration Insulin Aspart 1 vial 03/15/17 11:00 03/17/17 17:17 Novolog Vial Sliding Scale - SQ Not Given ACHS [facility] Protocol Insulin Aspart 20 units 03/16/17 07:00 03/17/17 17:16 Novolog Mix 70/30 Vial SQ 20 units BIDAC [facility] Administration Losartan Potassium 100 mg 03/16/17 10:00 03/17/17 09:43 Cozaar - PO 100 mg DAILY [facility] Administration Metoprolol Succinate 200 mg 03/15/17 10:00 03/17/17 09:42 Toprol Xl - PO 200 mg DAILY [facility] Administration Vitamin E 800 unit 03/16/17 07:00 03/17/17 06:19 Vitamin E - PO 800 unit AM [facility] Administration Impression 1. STEFFI 2. hypertensive urgency 3. lower extremity edema 4. DM 5. obesity 6. microscopic hematuria 7. pulmonary hypertension Plan - repeat bmp in am - cont with IV lasix with close monitoring of renal function - repeat ua - discussed with cardiology - will need outside records to evaluate cardio and pulm htn workup - pulmonary eval - will need a full renal workup - check patrick for now Dr Yang
[2017-03-17] MEDS ORDERED: ALBUTEROL SO4 2.5/IPRATROPIUM 0.5 INH SOL 3 ML VIAL.NEB. NEB PRN (21:55)
[2017-03-18] MEDS: INSULIN SLIDING SCALE (NOVOLOG) 1 VIAL SQ SCH ×4 (06:29→21:59)
[2017-03-18] MEDS: INSULIN (NOVOLOG MIX 70/30) 100 UNITS/ML MDV SQ SCH ×2 (06:29→17:28)
[2017-03-18] MEDS: VITAMIN E 400 INTERNATIONAL-UNITS CAPSULE (FP) PO SCH (06:29)
[2017-03-18 08:27] LABS: ALBUMIN 2.8 g/dl (3.4-5.0); ANION GAP 13 (8-16); CALCIUM 8.2 mg/dL (8.5-10.1); CO2 23 mmol/L (21-32); GLUCOSE,RANDOM 94 mg/dL (74-106)
[2017-03-18 08:32] LABS: ALK PHOS 461 U/L (45-117); BILIRUBIN,TOTAL 0.9 mg/dL (0.2-1.0); CREATININE 1.8 mg/dL (0.55-1.02); SGOT/AST 36 U/L (15-37); SGPT/ALT 34 U/L (12-78)
[2017-03-18] MEDS: METOPROLOL SUCCINATE 100 MG TAB.SR.24H (FP) PO SCH ×2 (09:37→12:39)
[2017-03-18] MEDS: FUROSEMIDE 40 MG/4 ML INJECTABLE VIAL IVPUSH SCH (09:37)
[2017-03-18] MEDS: amLODIPine BESYLATE 5 MG TABLET (FP) PO SCH (09:37)
[2017-03-18] MEDS: HEPARIN NA (PORCINE) 5,000 UNITS/ML 1ML VIAL SQ SCH ×2 (09:37→21:58)
[2017-03-18] MEDS: LOSARTAN POTASSIUM 50 MG TABLET (FP) PO SCH (09:37)
--- NOTE | 2017-03-18 11:19 | PN ---
Progress Note (short form) - Note Progress Note: RENAL Pt is awake and alert comfortable says she has been losing weight Last Vital Signs Temp Pulse Resp BP Pulse Ox 98.1 F 66 18 133/90 98 03/18/17 05:00 03/18/17 05:00 03/18/17 05:00 03/18/17 05:00 03/17/17 09:00 lungs clear cvs s1s12 rr abd soft, ?hepatomegaly ext +edema neuro a+ox3 CBC, BMP 03/15/17 06:34 03/18/17 05:35 Current Medications Generic Name Dose Route Start Last Admin Trade Name Freq PRN Reason Stop Dose Admin Albuterol/Ipratropium 1 amp 03/17/17 21:55 03/17/17 22:15 Duoneb - NEB 1 amp Q6H PRN Administration Amlodipine Besylate 5 mg 03/15/17 10:00 03/18/17 09:37 Norvasc - PO 5 mg DAILY MIGUEL Administration Furosemide 40 mg 03/16/17 10:00 03/18/17 09:37 Lasix Injection - IVPUSH 40 mg DAILY [facility]UEL Administration Heparin Sodium (Porcine) 5,000 unit 03/14/17 22:00 03/18/17 09:37 Heparin - SQ 5,000 unit BID MIGUEL Administration Insulin Aspart 1 vial 03/15/17 11:00 03/18/17 06:29 Novolog Vial Sliding Scale - SQ Not Given ACHS [facility] Protocol Insulin Aspart 20 units 03/16/17 07:00 03/18/17 06:29 Novolog Mix 70/30 Vial SQ 20 units BIDAC MIGUEL Administration Losartan Potassium 100 mg 03/16/17 10:00 03/18/17 09:37 Cozaar - PO 100 mg DAILY [facility]UEL Administration Metoprolol Succinate 100 mg 03/18/17 11:00 Toprol Xl - PO DAILY MIGUEL Vitamin E 800 unit 03/16/17 07:00 03/18/17 06:29 Vitamin E - PO 800 unit AM MIGUEL Administration Impression 1. STEFFI 2. hypertensive urgency 3. lower extremity edema 4. DM 5. obesity 6. microscopic hematuria 7. pulmonary hypertension 8. probable ckd but not proteinuric 9. weight loss 10. hepatomegaly Plan urine protein and creatinine rule out paraproteinemia may have ckd with tubulointerstitial component continue lasix work up weight loss- ? egd/colonoscopy. Note anemia MV
--- NOTE | 2017-03-18 19:49 | PN ---
Progress Note, Physician Chief Complaint: HYPERTENSION,ACUTE RENAL INSUFFICIENCY History of Present Illness: SITTING COMFORTABLY IN BED, NAD - Current Medication List Current Medications: Active Medications Albuterol/Ipratropium (Duoneb -) 1 amp NEB Q6H PRN Last Admin: 03/17/17 22:15 Dose: 1 amp Amlodipine Besylate (Norvasc -) 5 mg PO DAILY [facility] Last Admin: 03/18/17 09:37 Dose: 5 mg Furosemide (Lasix Injection -) 40 mg IVPUSH DAILY [facility] Last Admin: 03/18/17 09:37 Dose: 40 mg Heparin Sodium (Porcine) (Heparin -) 5,000 unit SQ BID [facility] Last Admin: 03/18/17 09:37 Dose: 5,000 unit Insulin Aspart (Novolog Vial Sliding Scale -) 1 vial SQ ACHS [facility] PRN Reason: Protocol Last Admin: 03/18/17 17:28 Dose: Not Given Insulin Aspart (Novolog Mix 70/30 Vial) 20 units SQ BIDAC [facility] Last Admin: 03/18/17 17:28 Dose: 20 units Losartan Potassium (Cozaar -) 100 mg PO DAILY [facility] Last Admin: 03/18/17 09:37 Dose: 100 mg Metoprolol Succinate (Toprol Xl -) 100 mg PO DAILY [facility] Last Admin: 03/18/17 12:39 Dose: Not Given Vitamin E (Vitamin E -) 800 unit PO AM [facility] Last Admin: 03/18/17 06:29 Dose: 800 unit - Objective Vital Signs: Vital Signs Temperature 98.5 F 03/18/17 18:00 Pulse Rate 71 03/18/17 18:00 Respiratory Rate 19 03/18/17 18:00 Blood Pressure 146/84 03/18/17 18:00 O2 Sat by Pulse Oximetry (%) 100 03/18/17 10:00 Constitutional: Yes: Well Nourished, No Distress, Calm Cardiovascular: Yes: Regular Rate and Rhythm Respiratory: Yes: Regular Musculoskeletal: Yes: WNL Extremities: Yes: WNL Edema: No Peripheral Pulses WNL: Yes Labs: CBC, BMP 03/15/17 06:34 03/18/17 05:35 Problem List - Problems (1) Controlled diabetes mellitus with diabetic nephropathy, with long-term current use of insulin Code(s): E11.21 - TYPE 2 DIABETES MELLITUS WITH DIABETIC NEPHROPATHY 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 Code(s): I16.0 - HYPERTENSIVE URGENCY (3) Renal insufficiency Assessment/Plan: MONITOR LABS IN AM, RENAL FXN IMPROVING, SEEN BY RENAL. Code(s): N28.9 - DISORDER OF KIDNEY AND URETER, UNSPECIFIED (4) Anemia Assessment/Plan: MONITOR H/H REPEAT LABS IN AM Code(s): D64.9 - ANEMIA, UNSPECIFIED Qualifiers: Anemia type: unspecified type Qualified Code(s): D64.9 - Anemia, unspecified Assessment/Plan RENAL CONSULT IV FUROSEMIDE BP IMPROVED MONITOR H/H STOOL OB ORDERED
[2017-03-19] MEDS: INSULIN (NOVOLOG MIX 70/30) 100 UNITS/ML MDV SQ SCH (06:11)
[2017-03-19] MEDS: INSULIN SLIDING SCALE (NOVOLOG) 1 VIAL SQ SCH ×4 (06:12→21:50)
[2017-03-19] MEDS ORDERED: PT OWN MED DRAWER 7, Y5N ONE ×2 (06:14→08:25)
[2017-03-19] MEDS: VITAMIN E 400 INTERNATIONAL-UNITS CAPSULE (FP) PO SCH (06:15)
[2017-03-19 07:57] LABS: ALBUMIN 2.8 g/dl (3.4-5.0); ALK PHOS 445 U/L (45-117); ANION GAP 10 (8-16); BILIRUBIN,TOTAL 0.9 mg/dL (0.2-1.0); CALCIUM 8.5 mg/dL (8.5-10.1); CO2 26 mmol/L (21-32); CREATININE 1.8 mg/dL (0.55-1.02); SGOT/AST 29 U/L (15-37); SGPT/ALT 33 U/L (12-78); TOT PROT 6.9 g/dl (6.4-8.2)
[2017-03-19 08:03] LABS: GLUCOSE,RANDOM 154 mg/dL (74-106)
[2017-03-19 08:38] LABS: MCH 23.2 pg (25.7-33.7); MCHC 31.7 g/dl (32.0-36.0); MEAN PLT VOLUME 9.1 fl (7.5-11.1); PLATELET COUNT 207 K/MM3 (134-434); RDW 26.7 % (11.6-15.6); WHITE BLOOD COUNT 4.2 K/mm3 (4.0-10.0)
[2017-03-19] MEDS: HEPARIN NA (PORCINE) 5,000 UNITS/ML 1ML VIAL SQ SCH ×2 (09:19→21:51)
[2017-03-19] MEDS: FUROSEMIDE 40 MG/4 ML INJECTABLE VIAL IVPUSH SCH (09:19)
[2017-03-19] MEDS: LOSARTAN POTASSIUM 50 MG TABLET (FP) PO SCH (09:19)
[2017-03-19] MEDS: amLODIPine BESYLATE 5 MG TABLET (FP) PO SCH (09:19)
[2017-03-19] MEDS: METOPROLOL SUCCINATE 100 MG TAB.SR.24H (FP) PO SCH (09:20)
[2017-03-19 09:47] LABS: PLATELET ESTIMATE ADEQUATE (NORMAL)
--- NOTE | 2017-03-19 11:52 | PN ---
Progress Note (short form) - Note Progress Note: RENAL Pt is awake and alert comfortable Last Vital Signs Temp Pulse Resp BP Pulse Ox 97.4 F L 60 18 130/75 100 03/19/17 06:00 03/19/17 06:00 03/19/17 06:00 03/19/17 06:00 03/19/17 06:00 lungs clear cvs s1s12 rr abd soft, ?hepatomegaly ext edema reduced neuro a+ox3 CBC, BMP 03/19/17 05:35 03/19/17 05:35 Current Medications Generic Name Dose Route Start Last Admin Trade Name Freq PRN Reason Stop Dose Admin Albuterol/Ipratropium 1 amp 03/17/17 21:55 03/17/17 22:15 Duoneb - NEB 1 amp Q6H PRN Administration Amlodipine Besylate 5 mg 03/15/17 10:00 03/19/17 09:19 Norvasc - PO 5 mg DAILY [facility] Administration Furosemide 40 mg 03/16/17 10:00 03/19/17 09:19 Lasix Injection - IVPUSH 40 mg DAILY [facility] Administration Heparin Sodium (Porcine) 5,000 unit 03/14/17 22:00 03/19/17 09:19 Heparin - SQ 5,000 unit BID [facility] Administration Insulin Aspart 1 vial 03/15/17 11:00 03/19/17 06:12 Novolog Vial Sliding Scale - SQ Not Given ACHS [facility] Protocol Insulin Aspart 20 units 03/16/17 07:00 03/19/17 06:11 Novolog Mix 70/30 Vial SQ 20 units BIDAC [facility] Administration Losartan Potassium 100 mg 03/16/17 10:00 03/19/17 09:19 Cozaar - PO 100 mg DAILY [facility] Administration Metoprolol Succinate 100 mg 03/18/17 11:00 03/19/17 09:20 Toprol Xl - PO Not Given DAILY [facility] Vitamin E 800 unit 03/16/17 07:00 03/19/17 06:15 Vitamin E - PO 800 unit AM [facility] Administration Impression 1. STEFFI 2. hypertensive urgency 3. lower extremity edema 4. DM 5. obesity 6. microscopic hematuria 7. pulmonary hypertension- probably with associated right heart failure causing hepatic congestion and edema 8. probable ckd but not proteinuric 9. weight loss 10. hepatomegaly Plan urine protein and creatinine may have ckd with tubulointerstitial component continue lasix work up weight loss- ? egd/colonoscopy. Note anemia [facility]
[2017-03-19 12:54] LABS: URINE APPEARANCE CLEAR; URINE BILIRUBIN NEGATIVE (NEGATIVE); URINE COLOR LTYELLOW; URINE GLUCOSE (UA) NEGATIVE (NEGATIVE); URINE KETONE NEGATIVE (NEGATIVE); URINE LEUK ESTERASE NEGATIVE (NEGATIVE); URINE NITRITE NEGATIVE (NEGATIVE); URINE PROTEIN NEGATIVE (NEGATIVE); URINE UROBILINOGEN NEGATIVE E.U./dl (0.2-1.0)
[2017-03-19 12:59] LABS: URINE BLOOD 3+ (NEGATIVE)
[2017-03-19 13:02] LABS: URINE RBC 1 /hpf (0-3); URINE WBC <1 /hpf (3-5)
[2017-03-19 13:43] LABS: URINE CREATININE 63.9 mg/dL (20-320)
--- NOTE | 2017-03-19 15:22 | PN ---
Progress Note (short form) - Note Progress Note: Patient feeling much better She wants to leave Last Vital Signs Temp Pulse Resp BP Pulse Ox 98.2 F 65 20 150/76 100 03/19/17 14:00 03/19/17 14:00 03/19/17 14:00 03/19/17 14:00 03/19/17 06:00 Lungs clear Cor Reg Abd obese and NT CBC, BMP 03/19/17 05:35 03/19/17 05:35 Hepatic Panel Total Bilirubin 0.9 mg/dL (0.2-1.0) 03/19/17 05:35 AST 29 U/L (15-37) 03/19/17 05:35 ALT 33 U/L (12-78) 03/19/17 05:35 Alkaline Phosphatase 445 U/L (45-117) H 03/19/17 05:35 Albumin 2.8 g/dl (3.4-5.0) L 03/19/17 05:35 A/P Elevated alk phos needs opt w/u Anemia multifactorial: Renal sickle trait vaginal bleeding ongoing since December Poorly controlled diabetes with attendant end-organ damage and elevated inflammation Discussed EGD and colon with her to r/o GI source She is amenable to testing Will sched as opt. She was given my information
[2017-03-19] MEDS ORDERED: INSULIN (NOVOLOG MIX 70/30) 100 UNITS/ML MDV SQ SCH (16:30)
--- NOTE | 2017-03-19 18:46 | PN ---
Progress Note (short form) - Note Progress Note: The patient could not be found on the vieira. Will see tomorrow. Informed by nurse about frequent bradycardia. Telemetry shows nocturnal junctional bradycardia in the 30s. no pauses. Suspect untreated TYLOR. Will DC metoprolol If BP control is needed, avoid AV ivon blocking agents. Will follow.
--- NOTE | 2017-03-19 22:30 | PN ---
Progress Note, Physician Chief Complaint: HYPERTENSION,ACUTE RENAL INSUFFICIENCY History of Present Illness: SITTING COMFORTABLY IN BED, NAD - Current Medication List Current Medications: Active Medications Albuterol/Ipratropium (Duoneb -) 1 amp NEB Q6H PRN Last Admin: 03/17/17 22:15 Dose: 1 amp Amlodipine Besylate (Norvasc -) 5 mg PO DAILY [facility] Last Admin: 03/19/17 09:19 Dose: 5 mg Furosemide (Lasix Injection -) 40 mg IVPUSH DAILY [facility] Last Admin: 03/19/17 09:19 Dose: 40 mg Heparin Sodium (Porcine) (Heparin -) 5,000 unit SQ BID [facility] Last Admin: 03/19/17 21:51 Dose: 5,000 unit Insulin Aspart (Novolog Vial Sliding Scale -) 1 vial SQ ACHS [facility] PRN Reason: Protocol Last Admin: 03/19/17 21:50 Dose: Not Given Insulin Detemir (Levemir Vial) 20 units SQ ACBK [facility] Losartan Potassium (Cozaar -) 100 mg PO DAILY [facility] Last Admin: 03/19/17 09:19 Dose: 100 mg Vitamin E (Vitamin E -) 800 unit PO AM [facility] Last Admin: 03/19/17 06:15 Dose: 800 unit - Objective Vital Signs: Vital Signs Temperature 98.1 F 03/19/17 18:00 Pulse Rate 51 L 03/19/17 18:00 Respiratory Rate 19 03/19/17 18:00 Blood Pressure 134/76 03/19/17 18:00 O2 Sat by Pulse Oximetry (%) 99 03/19/17 21:00 Constitutional: Yes: Well Nourished, No Distress, Calm Cardiovascular: Yes: Regular Rate and Rhythm Respiratory: Yes: Regular Neurological: Yes: Alert, Oriented Labs: CBC, BMP 03/19/17 05:35 03/19/17 05:35 Problem List - Problems (1) Controlled diabetes mellitus with diabetic nephropathy, with long-term current use of insulin Code(s): E11.21 - TYPE 2 DIABETES MELLITUS WITH DIABETIC NEPHROPATHY Z79.4 - [facility] (CURRENT) USE OF INSULIN Qualifiers: Diabetes mellitus type: due to underlying condition Qualified Code(s ): E08.21 - Diabetes mellitus due to underlying condition with diabetic nephropathy; 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
[2017-03-20] MEDS ORDERED: PT OWN MED DRAWER 7, Y5N ONE (06:13)
[2017-03-20] MEDS: VITAMIN E 400 INTERNATIONAL-UNITS CAPSULE (FP) PO SCH (06:26)
[2017-03-20] MEDS: INSULIN DETEMIR 100 UNITS/ML MDV SQ SCH (06:27)
[2017-03-20] MEDS: INSULIN SLIDING SCALE (NOVOLOG) 1 VIAL SQ SCH ×4 (06:27→22:21)
[2017-03-20] MEDS ORDERED: INSULIN DETEMIR 100 UNITS/ML MDV SQ SCH (07:00)
[2017-03-20 07:43] LABS: BASOPHIL 1.2 % (0-2.0); EOSINOPHIL 7.2 % (0-4.5); MCHC 31.8 g/dl (32.0-36.0); MEAN CELL VOLUME 72.3 fl (80-96); MEAN PLT VOLUME 9.6 fl (7.5-11.1); NEUTROPHILS 63.1 % (42.8-82.8); PLATELET COUNT 224 K/MM3 (134-434); RDW 26.2 % (11.6-15.6); WHITE BLOOD COUNT 4.6 K/mm3 (4.0-10.0)
[2017-03-20 08:13] LABS: ALBUMIN 3.2 g/dl (3.4-5.0); ALK PHOS 482 U/L (45-117); ANION GAP 9 (8-16); BILIRUBIN,TOTAL 0.9 mg/dL (0.2-1.0); CALCIUM 8.6 mg/dL (8.5-10.1); CO2 25 mmol/L (21-32); CREATININE 1.5 mg/dL (0.55-1.02); GLUCOSE,RANDOM 172 mg/dL (74-106); SGOT/AST 32 U/L (15-37); SGPT/ALT 32 U/L (12-78); TOT PROT 7.5 g/dl (6.4-8.2)
[2017-03-20] MEDS: FUROSEMIDE 40 MG/4 ML INJECTABLE VIAL IVPUSH SCH (09:40)
[2017-03-20] MEDS: LOSARTAN POTASSIUM 50 MG TABLET (FP) PO SCH (09:40)
[2017-03-20] MEDS: HEPARIN NA (PORCINE) 5,000 UNITS/ML 1ML VIAL SQ SCH ×2 (09:40→22:21)
[2017-03-20] MEDS: amLODIPine BESYLATE 5 MG TABLET (FP) PO SCH (09:41)
[2017-03-20 09:47] LABS: FRAGMENTED CELL 1+; HYPOCHROMIA 1+; PLATELET COMMENT2 NO CLOTTING DETECTED; PLATELET ESTIMATE ADEQUATE (NORMAL); POIKILOCYTOSIS 2+; SMUDGE CELLS FEW
--- NOTE | 2017-03-20 13:45 | PN ---
Progress Note, Physician History of Present Illness: Pt seen and examined at bedside. She is awake and alert. She denies shortness of breath. - Current Medication List Current Medications: Active Medications Albuterol/Ipratropium (Duoneb -) 1 amp NEB Q6H PRN Last Admin: 03/17/17 22:15 Dose: 1 amp Amlodipine Besylate (Norvasc -) 5 mg PO DAILY [facility] Last Admin: 03/20/17 09:41 Dose: 5 mg Furosemide (Lasix Injection -) 40 mg IVPUSH DAILY [facility] Last Admin: 03/20/17 09:40 Dose: 40 mg Heparin Sodium (Porcine) (Heparin -) 5,000 unit SQ BID [facility] Last Admin: 03/20/17 09:40 Dose: 5,000 unit Insulin Aspart (Novolog Vial Sliding Scale -) 1 vial SQ ACHS [facility] PRN Reason: Protocol Last Admin: 03/20/17 11:40 Dose: 2 units Insulin Detemir (Levemir Vial) 12 units SQ ACBK [facility] Last Admin: 03/20/17 06:27 Dose: 12 units Losartan Potassium (Cozaar -) 100 mg PO DAILY [facility] Last Admin: 03/20/17 09:40 Dose: 100 mg Vitamin E (Vitamin E -) 800 unit PO AM [facility] Last Admin: 03/20/17 06:26 Dose: 800 unit - Objective Vital Signs: Vital Signs Temperature 98 F 03/20/17 10:00 Pulse Rate 74 03/20/17 10:00 Respiratory Rate 18 03/20/17 10:00 Blood Pressure 170/90 03/20/17 10:00 O2 Sat by Pulse Oximetry (%) 98 03/20/17 09:00 Constitutional: Yes: Calm Eyes: Yes: Conjunctiva Clear HENT: Yes: Atraumatic Neck: Yes: Supple Cardiovascular: Yes: S1, S2 Respiratory: Yes: CTA Bilaterally Gastrointestinal: Yes: Normal Bowel Sounds, Soft Genitourinary: Yes: WNL Musculoskeletal: Yes: WNL Edema: Yes Edema: LLE: 2+, RLE: 2+ Neurological: Yes: Oriented Psychiatric: Yes: Oriented Labs: CBC, BMP 03/20/17 05:35 03/20/17 05:35 Problem List - Problems (1) Diabetes Code(s): E11.9 - TYPE 2 DIABETES MELLITUS WITHOUT COMPLICATIONS Qualifiers: Diabetes mellitus type: type 2 (2) Hypertensive urgency Code(s): I16.0 - HYPERTENSIVE URGENCY (3) Renal insufficiency Code(s): N28.9 - DISORDER OF KIDNEY AND URETER, UNSPECIFIED (4) Anemia Code(s): D64.9 - ANEMIA, UNSPECIFIED Qualifiers: Anemia type: unspecified type Qualified Code(s): D64.9 - Anemia, unspecified (5) HTN (hypertension) Code(s): I10 - ESSENTIAL (PRIMARY) HYPERTENSION Qualifiers: Hypertension type: essential hypertension Qualified Code(s): I10 - Essential (primary) hypertension Assessment/Plan Current Medications Generic Name Dose Route Start Last Admin Trade Name Freq PRN Reason Stop Dose Admin Albuterol/Ipratropium 1 amp 03/17/17 21:55 03/17/17 22:15 Duoneb - NEB 1 amp Q6H PRN Administration Amlodipine Besylate 5 mg 03/15/17 10:00 03/20/17 09:41 Norvasc - PO 5 mg DAILY [facility] Administration Furosemide 40 mg 03/16/17 10:00 03/20/17 09:40 Lasix Injection - IVPUSH 40 mg DAILY [facility] Administration Heparin Sodium (Porcine) 5,000 unit 03/14/17 22:00 03/20/17 09:40 Heparin - SQ 5,000 unit BID [facility] Administration Insulin Aspart 1 vial 03/15/17 11:00 03/20/17 11:40 Novolog Vial Sliding Scale - SQ 2 units ACHS [facility] Administration Protocol Insulin Detemir 12 units 03/20/17 07:00 03/20/17 06:27 Levemir Vial SQ 12 units ACBK [facility] Administration Losartan Potassium 100 mg 03/16/17 10:00 03/20/17 09:40 Cozaar - PO 100 mg DAILY [facility] Administration Vitamin E 800 unit 03/16/17 07:00 03/20/17 06:26 Vitamin E - PO 800 unit AM [facility] Administration Laboratory Tests 03/16/17 03/16/17 03/16/17 05:48 05:48 06:00 Creatinine Urine Creatinine Pending PATRICK Screen Hep Bs Antigen Negative Hepatitis C Antibody <0.1 03/17/17 03/18/17 08:13 05:35 Creatinine 1.5 H Urine Creatinine PATRICK Screen Pending Hep Bs Antigen Hepatitis C Antibody Impression 1. STEFFI 2. hypertensive urgency 3. lower extremity edema 4. DM 5. obesity 6. microscopic hematuria 7. pulmonary hypertension Plan - will cont with lasix - repeat urine prt to quality control lab tech ration - will need renal workup - consider pulm evaluation - will need outside records to evaluate cardio and pulm htn workup - follow up patrick - age appropriate screening Dr Yang
[2017-03-20 16:21] LABS: ALKALINE PHOSPHATASE 426 IU/L (39-117); INTESTINAL FRAC.: 3 % (0-18)
[2017-03-20 17:20] LABS: URINE APPEARANCE CLEAR; URINE BILIRUBIN NEGATIVE (NEGATIVE); URINE COLOR STRAW; URINE GLUCOSE (UA) 1+ (NEGATIVE); URINE KETONE NEGATIVE (NEGATIVE); URINE LEUK ESTERASE NEGATIVE (NEGATIVE); URINE NITRITE NEGATIVE (NEGATIVE); URINE PROTEIN NEGATIVE (NEGATIVE); URINE UROBILINOGEN NEGATIVE E.U./dl (0.2-1.0)
[2017-03-20 18:05] LABS: URINE BLOOD 3+ (NEGATIVE)
[2017-03-20 18:08] LABS: URINE RBC <1 /hpf (0-3); URINE WBC <1 /hpf (3-5)
--- NOTE | 2017-03-20 18:49 | PN ---
Progress Note, Physician Chief Complaint: AWAKE ALERT NAD - Current Medication List Current Medications: Active Medications Albuterol/Ipratropium (Duoneb -) 1 amp NEB Q6H PRN Last Admin: 03/17/17 22:15 Dose: 1 amp Amlodipine Besylate (Norvasc -) 5 mg PO DAILY [facility] Last Admin: 03/20/17 09:41 Dose: 5 mg Furosemide (Lasix Injection -) 40 mg IVPUSH DAILY [facility] Last Admin: 03/20/17 09:40 Dose: 40 mg Heparin Sodium (Porcine) (Heparin -) 5,000 unit SQ BID [facility] Last Admin: 03/20/17 09:40 Dose: 5,000 unit Insulin Aspart (Novolog Vial Sliding Scale -) 1 vial SQ ACHS [facility] PRN Reason: Protocol Last Admin: 03/20/17 17:09 Dose: 5 units Insulin Detemir (Levemir Vial) 12 units SQ ACBK [facility] Last Admin: 03/20/17 06:27 Dose: 12 units Losartan Potassium (Cozaar -) 100 mg PO DAILY [facility] Last Admin: 03/20/17 09:40 Dose: 100 mg Vitamin E (Vitamin E -) 800 unit PO AM [facility] Last Admin: 03/20/17 06:26 Dose: 800 unit - Objective Vital Signs: Vital Signs Temperature 98.1 F 03/20/17 17:00 Pulse Rate 73 03/20/17 17:00 Respiratory Rate 20 03/20/17 17:00 Blood Pressure 164/70 03/20/17 17:00 O2 Sat by Pulse Oximetry (%) 98 03/20/17 09:00 Constitutional: Yes: No Distress Eyes: Yes: WNL HENT: Yes: WNL Neck: Yes: WNL Cardiovascular: Yes: WNL Respiratory: Yes: WNL Gastrointestinal: Yes: WNL ...Rectal Exam: Yes: WNL Musculoskeletal: Yes: WNL Extremities: Yes: WNL Edema: No Peripheral Pulses WNL: Yes Integumentary: Yes: WNL Wound/Incision: Yes: Clean/Dry Neurological: Yes: WNL ...Motor Strength: WNL Psychiatric: Yes: WNL Labs: CBC, BMP 03/20/17 05:35 03/20/17 05:35 Problem List - Problems (1) Alkaline phosphatase elevation Code(s): R74.8 - ABNORMAL LEVELS OF OTHER SERUM ENZYMES (2) Anasarca Code(s): R60.1 - GENERALIZED EDEMA (3) Controlled diabetes mellitus with diabetic nephropathy, with long-term current use of insulin Code(s): E11.21 - TYPE 2 DIABETES MELLITUS WITH DIABETIC NEPHROPATHY Z79.4 - [facility] (CURRENT) USE OF INSULIN Qualifiers: Diabetes mellitus type: due to underlying condition Qualified Code(s ): E08.21 - Diabetes mellitus due to underlying condition with diabetic nephropathy; Z79.4 - [facility] (current) use of insulin (4) Diabetes Code(s): E11.9 - TYPE 2 DIABETES MELLITUS WITHOUT COMPLICATIONS Qualifiers: Diabetes mellitus type: type 2 Diabetes mellitus complication status: with unspecified complications (5) Renal insufficiency Code(s): N28.9 - DISORDER OF KIDNEY AND URETER, UNSPECIFIED (6) Anemia Code(s): D64.9 - ANEMIA, UNSPECIFIED Qualifiers: Anemia type: unspecified type Qualified Code(s): D64.9 - Anemia, unspecified (7) Transfusion of blood during current hospitalization Code(s): [id number] - Assessment/Plan RENAL AND GI WORKUP MONITOR H/H BP CONTROLLED TODAY CARDIO EVAL
[2017-03-20 19:18] LABS: URINE CREATININE 27.7 mg/dL (20-320)
[2017-03-21] MEDS ORDERED: PT OWN MED DRAWER 7, Y5N ONE (06:02)
[2017-03-21] MEDS: INSULIN SLIDING SCALE (NOVOLOG) 1 VIAL SQ SCH ×4 (06:11→22:05)
[2017-03-21] MEDS: VITAMIN E 400 INTERNATIONAL-UNITS CAPSULE (FP) PO SCH (06:12)
[2017-03-21] MEDS: INSULIN DETEMIR 100 UNITS/ML MDV SQ SCH (06:12)
[2017-03-21 09:11] LABS: ANION GAP 10 (8-16); CALCIUM 8.7 mg/dL (8.5-10.1); CO2 26 mmol/L (21-32); CREATININE 1.4 mg/dL (0.55-1.02); GLUCOSE,RANDOM 157 mg/dL (74-106)
[2017-03-21] MEDS: HEPARIN NA (PORCINE) 5,000 UNITS/ML 1ML VIAL SQ SCH ×2 (09:35→22:04)
[2017-03-21] MEDS: LOSARTAN POTASSIUM 50 MG TABLET (FP) PO SCH (09:36)
[2017-03-21] MEDS: FUROSEMIDE 40 MG/4 ML INJECTABLE VIAL IVPUSH SCH (09:36)
[2017-03-21] MEDS: amLODIPine BESYLATE 5 MG TABLET (FP) PO SCH (09:36)
--- NOTE | 2017-03-21 14:02 | PN ---
Progress Note, Physician History of Present Illness: Cardiology Follow up. 47 F with poorly controlled DM, morbid obesity, HTN off medication admitted with volume overload, STEFFI and heart failure. THere is a prior history of arrhythmia but details are not known and she was treated medically and never advised to have ablation or cath. Echocardiogram here showed preserved LV systolic function with normal RV function and moderate pulm arterial HTN. On metoprolol she had frequent junctional bradycardia. TIt was stopped. Now noted to have recurrent SVT HR 140s-asymptomatic. - Current Medication List Current Medications: Active Medications Albuterol/Ipratropium (Duoneb -) 1 amp NEB Q6H PRN Last Admin: 03/17/17 22:15 Dose: 1 amp Amlodipine Besylate (Norvasc -) 5 mg PO DAILY [facility] Last Admin: 03/21/17 09:36 Dose: 5 mg Furosemide (Lasix Injection -) 40 mg IVPUSH DAILY [facility] Last Admin: 03/21/17 09:36 Dose: 40 mg Heparin Sodium (Porcine) (Heparin -) 5,000 unit SQ BID [facility] Last Admin: 03/21/17 09:35 Dose: 5,000 unit Insulin Aspart (Novolog Vial Sliding Scale -) 1 vial SQ ACHS [facility] PRN Reason: Protocol Last Admin: 03/21/17 13:12 Dose: Not Given Insulin Detemir (Levemir Vial) 12 units SQ ACBK [facility] Last Admin: 03/21/17 06:12 Dose: 12 units Losartan Potassium (Cozaar -) 100 mg PO DAILY [facility] Last Admin: 03/21/17 09:36 Dose: 100 mg Vitamin E (Vitamin E -) 800 unit PO AM [facility] Last Admin: 03/21/17 06:12 Dose: 800 unit - Objective Vital Signs: Vital Signs Temperature 98 F 03/21/17 08:10 Pulse Rate 96 H 03/21/17 08:10 Respiratory Rate 20 03/21/17 08:10 Blood Pressure 157/85 03/21/17 08:10 O2 Sat by Pulse Oximetry (%) 97 03/21/17 08:00 Constitutional: Yes: Well Nourished, No Distress, Obese Eyes: Yes: WNL HENT: Yes: WNL Neck: Yes: WNL Cardiovascular: Yes: Regular Rate and Rhythm Respiratory: Yes: Regular, CTA Bilaterally Gastrointestinal: Yes: Normal Bowel Sounds, Soft, Hepatomegaly Edema: Yes Edema: LLE: 1+, RLE: 1+ Labs: CBC, BMP 03/20/17 05:35 03/21/17 05:40 - ....Imaging Ultrasound: Report Reviewed EKG: Image Reviewed Problem List - Problems (1) Atrial tachycardia, paroxysmal Assessment/Plan: Recurrent SVT likely to be PAT was notted off AV blockers. SHe had bradycardia on higher cooper metorpolol and I suspect strongly she has undiagnosed TYLOR. Rec Lower dose metoprolol XL 50mg qd. Check Thyroid function evaluate for obstructive sleep apnea COntinue telemerty. Code(s): I47.1 - SUPRAVENTRICULAR TACHYCARDIA (2) Pulmonary hypertension assoc with unclear multi-factorial mechanisms Assessment/Plan: Likely due to heart fialure with preserved EF and TYLOR. VOlume overload is Improving. Code(s): I27.2 - OTHER SECONDARY PULMONARY HYPERTENSION
[2017-03-21] MEDS: METOPROLOL SUCCINATE 50 MG TAB.SR.24H (FP) PO SCH (14:24)
--- NOTE | 2017-03-21 14:43 | EKG ---
Test Reason : Blood Pressure : / mmHG Vent. Rate : 076 BPM Atrial Rate : 075 BPM P-R Int : 000 ms QRS Dur : 074 ms QT Int : 408 ms P-R-T Axes : 000 088 -22 degrees QTc Int : 459 ms PROBABLE SINUS RHYTHM WITH SHORT W[place] INTERVAL NONSPECIFIC ST AND T WAVE ABNORMALITY ABNORMAL ECG WHEN COMPARED WITH ECG OF 14-MAR-2017 11:38, LIKELY NO SIGNIFICANT CHANGES WERE SEEN Confirmed by TERRA AGARWAL, ОЛЕГ ([id number]) on 03/21/2017 2:42:27 PM Referred By: Confirmed By:ОЛЕГ ELLISON MD
--- NOTE | 2017-03-21 16:21 | PN ---
Progress Note, Physician Chief Complaint: AWAKE, SISTER BEDSIDE DENIES CHEST PAIN NO DYSPNEA NOTES REVIEWED SVT OVER NIGHT - Current Medication List Current Medications: Active Medications Albuterol/Ipratropium (Duoneb -) 1 amp NEB Q6H PRN Last Admin: 03/17/17 22:15 Dose: 1 amp Amlodipine Besylate (Norvasc -) 5 mg PO DAILY [facility] Last Admin: 03/21/17 09:36 Dose: 5 mg Furosemide (Lasix Injection -) 40 mg IVPUSH DAILY [facility] Last Admin: 03/21/17 09:36 Dose: 40 mg Heparin Sodium (Porcine) (Heparin -) 5,000 unit SQ BID [facility] Last Admin: 03/21/17 09:35 Dose: 5,000 unit Insulin Aspart (Novolog Vial Sliding Scale -) 1 vial SQ ACHS [facility] PRN Reason: Protocol Last Admin: 03/21/17 13:12 Dose: Not Given Insulin Detemir (Levemir Vial) 12 units SQ ACBK [facility] Last Admin: 03/21/17 06:12 Dose: 12 units Losartan Potassium (Cozaar -) 100 mg PO DAILY [facility] Last Admin: 03/21/17 09:36 Dose: 100 mg Metoprolol Succinate (Toprol Xl -) 50 mg PO DAILY [facility] Last Admin: 03/21/17 14:24 Dose: 50 mg Vitamin E (Vitamin E -) 800 unit PO AM [facility] Last Admin: 03/21/17 06:12 Dose: 800 unit - Objective Vital Signs: Vital Signs Temperature 98.1 F 03/21/17 14:14 Pulse Rate 90 03/21/17 14:14 Respiratory Rate 20 03/21/17 14:14 Blood Pressure 174/83 03/21/17 14:14 O2 Sat by Pulse Oximetry (%) 97 03/21/17 08:00 Constitutional: Yes: No Distress Eyes: Yes: WNL HENT: Yes: WNL Neck: Yes: WNL Cardiovascular: Yes: WNL Respiratory: Yes: WNL Gastrointestinal: Yes: WNL Genitourinary: Yes: WNL Musculoskeletal: Yes: WNL Extremities: Yes: WNL Edema: Yes Edema: LLE: Trace, RLE: Trace Peripheral Pulses WNL: Yes Integumentary: Yes: WNL Wound/Incision: Yes: Clean/Dry Neurological: Yes: WNL ...Motor Strength: WNL Psychiatric: Yes: WNL Labs: CBC, BMP 03/20/17 05:35 03/21/17 05:40 Problem List - Problems (1) Alkaline phosphatase elevation Code(s): R74.8 - ABNORMAL LEVELS OF OTHER SERUM ENZYMES (2) Anasarca Code(s): R60.1 - GENERALIZED EDEMA (3) Controlled diabetes mellitus with diabetic nephropathy, with long-term current use of insulin Code(s): E11.21 - TYPE 2 DIABETES MELLITUS WITH DIABETIC NEPHROPATHY Z79.4 - CARE TRANSITION MGR (CURRENT) USE OF INSULIN Qualifiers: Diabetes mellitus type: due to underlying condition Qualified Code(s ): E08.21 - Diabetes mellitus due to underlying condition with diabetic nephropathy; 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 (4) Diabetes Code(s): E11.9 - TYPE 2 DIABETES MELLITUS WITHOUT COMPLICATIONS Qualifiers: Diabetes mellitus type: type 2 Diabetes mellitus complication status: with unspecified complications (5) Renal insufficiency Code(s): N28.9 - DISORDER OF KIDNEY AND URETER, UNSPECIFIED (6) Anemia Code(s): D64.9 - ANEMIA, UNSPECIFIED Qualifiers: Anemia type: unspecified type Qualified Code(s): D64.9 - Anemia, unspecified (7) Transfusion of blood during current hospitalization Code(s): [id number] - (8) Pulmonary hypertension Code(s): I27.2 - OTHER SECONDARY PULMONARY HYPERTENSION (9) Pulmonary hypertension assoc with unclear multi-factorial mechanisms Code(s): I27.2 - OTHER SECONDARY PULMONARY HYPERTENSION (10) Atrial tachycardia, paroxysmal Code(s): I47.1 - SUPRAVENTRICULAR TACHYCARDIA Assessment/Plan TELEMETRY CONTINUED TSH ORDERED SLEEP APNEA WORKUP V/Q SCAN UNABLE TO DO CT ANGIO WITH RENAL INSUFF. LASIX 02 SUPPORT ANEMIA STABLE
--- NOTE | 2017-03-21 17:27 | PN ---
Progress Note, Physician History of Present Illness: Pt seen and and examined at bedside. She is awake and alert. She denies shortness of breath. - Current Medication List Current Medications: Active Medications Albuterol/Ipratropium (Duoneb -) 1 amp NEB Q6H PRN Last Admin: 03/17/17 22:15 Dose: 1 amp Amlodipine Besylate (Norvasc -) 5 mg PO DAILY [facility] Last Admin: 03/21/17 09:36 Dose: 5 mg Furosemide (Lasix Injection -) 40 mg IVPUSH DAILY [facility] Last Admin: 03/21/17 09:36 Dose: 40 mg Heparin Sodium (Porcine) (Heparin -) 5,000 unit SQ BID [facility] Last Admin: 03/21/17 09:35 Dose: 5,000 unit Insulin Aspart (Novolog Vial Sliding Scale -) 1 vial SQ ACHS [facility] PRN Reason: Protocol Last Admin: 03/21/17 17:11 Dose: 5 units Insulin Detemir (Levemir Vial) 12 units SQ ACBK [facility] Last Admin: 03/21/17 06:12 Dose: 12 units Losartan Potassium (Cozaar -) 100 mg PO DAILY [facility] Last Admin: 03/21/17 09:36 Dose: 100 mg Metoprolol Succinate (Toprol Xl -) 50 mg PO DAILY [facility] Last Admin: 03/21/17 14:24 Dose: 50 mg Vitamin E (Vitamin E -) 800 unit PO AM [facility] Last Admin: 03/21/17 06:12 Dose: 800 unit - Objective Vital Signs: Vital Signs Temperature 98.1 F 03/21/17 14:14 Pulse Rate 90 03/21/17 14:14 Respiratory Rate 20 03/21/17 14:14 Blood Pressure 174/83 03/21/17 14:14 O2 Sat by Pulse Oximetry (%) 97 03/21/17 08:00 Constitutional: Yes: Calm Eyes: Yes: Conjunctiva Clear HENT: Yes: Atraumatic Neck: Yes: Supple Cardiovascular: Yes: S1, S2 Respiratory: Yes: CTA Bilaterally Gastrointestinal: Yes: Normal Bowel Sounds, Soft Genitourinary: Yes: WNL Edema: Yes Edema: LLE: 1+, RLE: 1+ Neurological: Yes: Oriented Psychiatric: Yes: Oriented Labs: CBC, BMP 03/20/17 05:35 03/21/17 05:40 Problem List - Problems (1) Diabetes Code(s): E11.9 - TYPE 2 DIABETES MELLITUS WITHOUT COMPLICATIONS Qualifiers: Diabetes mellitus type: type 2 Diabetes mellitus complication status: with unspecified complications (2) Hypertensive urgency Code(s): I16.0 - HYPERTENSIVE URGENCY (3) Renal insufficiency Code(s): N28.9 - DISORDER OF KIDNEY AND URETER, UNSPECIFIED (4) Anemia Code(s): D64.9 - ANEMIA, UNSPECIFIED Qualifiers: Anemia type: unspecified type Qualified Code(s): D64.9 - Anemia, unspecified (5) HTN (hypertension) Code(s): I10 - ESSENTIAL (PRIMARY) HYPERTENSION Qualifiers: Hypertension type: essential hypertension Qualified Code(s): I10 - Essential (primary) hypertension Assessment/Plan Current Medications Generic Name Dose Route Start Last Admin Trade Name Freq PRN Reason Stop Dose Admin Albuterol/Ipratropium 1 amp 03/17/17 21:55 03/17/17 22:15 Duoneb - NEB 1 amp Q6H PRN Administration Amlodipine Besylate 5 mg 03/15/17 10:00 03/21/17 09:36 Norvasc - PO 5 mg DAILY [facility] Administration Furosemide 40 mg 03/16/17 10:00 03/21/17 09:36 Lasix Injection - IVPUSH 40 mg DAILY [facility] Administration Heparin Sodium (Porcine) 5,000 unit 03/14/17 22:00 03/21/17 09:35 Heparin - SQ 5,000 unit BID [facility] Administration Insulin Aspart 1 vial 03/15/17 11:00 03/21/17 17:11 Novolog Vial Sliding Scale - SQ 5 units ACHS [facility] Administration Protocol Insulin Detemir 12 units 03/20/17 07:00 03/21/17 06:12 Levemir Vial SQ 12 units ACBK [facility] Administration Losartan Potassium 100 mg 03/16/17 10:00 03/21/17 09:36 Cozaar - PO 100 mg DAILY [facility] Administration Metoprolol Succinate 50 mg 03/21/17 14:15 03/21/17 14:24 Toprol Xl - PO 50 mg DAILY [facility] Administration Vitamin E 800 unit 03/16/17 07:00 03/21/17 06:12 Vitamin E - PO 800 unit AM [facility] Administration Laboratory Tests 03/16/17 03/16/17 03/18/17 05:48 05:48 05:35 Protein/Creatinin Ratio PATRICK Screen Negative Hep Bs Antigen Negative Hepatitis C Antibody <0.1 03/20/17 17:10 Protein/Creatinin Ratio 0.469 PATRICK Screen Hep Bs Antigen Hepatitis C Antibody Impression 1. STEFFI/CKD 2. hypertensive urgency 3. lower extremity edema 4. DM 5. obesity 6. microscopic hematuria 7. pulmonary hypertension Plan - patrick is negative - cont with lasix - cont with losartan - renal function is improving - pt can get renal workup as outpt - cardiology input appreciated - discussed with PMD - will need outside records to evaluate cardio and pulm htn workup - age appropriate screening Dr Yang
--- NOTE | 2017-03-22 00:26 | PN ---
Progress Note, Physician Chief Complaint: higher blood sugars History of Present Illness: anxious still labile bs,denies chest pain - Current Medication List Current Medications: Active Medications Albuterol/Ipratropium (Duoneb -) 1 amp NEB Q6H PRN Last Admin: 03/17/17 22:15 Dose: 1 amp Amlodipine Besylate (Norvasc -) 5 mg PO DAILY [facility] Last Admin: 03/21/17 09:36 Dose: 5 mg Furosemide (Lasix Injection -) 40 mg IVPUSH DAILY [facility] Last Admin: 03/21/17 09:36 Dose: 40 mg Insulin Aspart (Novolog Vial Sliding Scale -) 1 vial SQ ACHS [facility] PRN Reason: Protocol Last Admin: 03/21/17 22:05 Dose: 2 units Insulin Detemir (Levemir Vial) 12 units SQ ACBK [facility] Last Admin: 03/21/17 06:12 Dose: 12 units Losartan Potassium (Cozaar -) 100 mg PO DAILY [facility] Last Admin: 03/21/17 09:36 Dose: 100 mg Metoprolol Succinate (Toprol Xl -) 50 mg PO DAILY [facility] Last Admin: 03/21/17 14:24 Dose: 50 mg Vitamin E (Vitamin E -) 800 unit PO AM [facility] Last Admin: 03/21/17 06:12 Dose: 800 unit - Objective Vital Signs: Vital Signs Temperature 97.6 F 03/21/17 22:00 Pulse Rate 70 03/21/17 22:00 Respiratory Rate 20 03/21/17 22:00 Blood Pressure 150/90 03/21/17 22:00 O2 Sat by Pulse Oximetry (%) 99 03/21/17 21:00 Constitutional: Yes: Well Nourished Eyes: Yes: EOM Intact HENT: Yes: Normocephalic Neck: Yes: Trachea Midline Cardiovascular: Yes: Regular Rate and Rhythm Respiratory: Yes: CTA Bilaterally Gastrointestinal: Yes: Normal Bowel Sounds ...Rectal Exam: Yes: Deferred Genitourinary: Yes: WNL Breast(s): Yes: WNL Musculoskeletal: Yes: WNL Extremities: Yes: WNL Edema: No Peripheral Pulses WNL: Yes Integumentary: Yes: WNL Neurological: Yes: Alert, Oriented Labs: CBC, BMP 03/20/17 05:35 03/21/17 05:40 Problem List - Problems (1) Hypertensive urgency Code(s): I16.0 - HYPERTENSIVE URGENCY (2) Pulmonary hypertension Code(s): I27.2 - OTHER SECONDARY PULMONARY HYPERTENSION (3) Renal insufficiency Code(s): N28.9 - DISORDER OF KIDNEY AND URETER, UNSPECIFIED (4) Controlled diabetes mellitus with diabetic nephropathy, with long-term current use of insulin Code(s): E11.21 - TYPE 2 DIABETES MELLITUS WITH DIABETIC NEPHROPATHY Z79.4 - [employer] (CURRENT) USE OF INSULIN Qualifiers: Diabetes mellitus type: due to underlying condition Qualified Code(s ): E08.21 - Diabetes mellitus due to underlying condition with diabetic nephropathy; Z79.4 - [facility] (current) use of insulin Assessment/Plan Current Active Problems Alkaline phosphatase elevation (Acute) Anasarca (Acute) Controlled diabetes mellitus with diabetic nephropathy, with long-term current use of insulin (Acute) Diabetes (Acute) Hypertensive urgency (Acute) Pulmonary hypertension (Acute) Pulmonary hypertension assoc with unclear multi-factorial mechanisms (Acute) Renal insufficiency (Acute) Abnormal Lab Results 03/20/17 03/21/17 17:10 05:40 BUN 31 H Creatinine 1.4 H Random Glucose 157 H U Random Total Protein 13 H Laboratory Results - last 24 hr 03/16/17 03/20/17 03/21/17 06:00 17:10 05:40 Sodium 138 Potassium 4.8 Chloride 102 Carbon Dioxide 26 Anion Gap 10 BUN 31 H Creatinine 1.4 H POC Glucometer Random Glucose 157 H Calcium 8.7 U Random Total Protein 13 H Urine Creatinine 3.1 27.7 Ur Creatinine 24 Hour 1045 Protein/Creatinin Ratio 0.469 Ur VMA Concentration 2.7 03/21/17 03/21/17 03/21/17 05:48 11:01 15:34 Sodium Potassium Chloride Carbon Dioxide Anion Gap BUN Creatinine POC Glucometer 164 199 251 Random Glucose Calcium U Random Total Protein Urine Creatinine Ur Creatinine 24 Hour Protein/Creatinin Ratio Ur VMA Concentration 03/21/17 22:03 Sodium Potassium Chloride Carbon Dioxide Anion Gap BUN Creatinine POC Glucometer 235 Random Glucose Calcium U Random Total Protein Urine Creatinine Ur Creatinine 24 Hour Protein/Creatinin Ratio Ur VMA Concentration plan; bgm 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 dose Current Medications Generic Name Dose Route Start Last Admin Trade Name Freq PRN Reason Stop Dose Admin Albuterol/Ipratropium 1 amp 03/17/17 21:55 03/17/17 22:15 Duoneb - NEB 1 amp Q6H PRN Administration Amlodipine Besylate 5 mg 03/15/17 10:00 03/21/17 09:36 Norvasc - PO 5 mg DAILY [facility] Administration Furosemide 40 mg 03/16/17 10:00 03/21/17 09:36 Lasix Injection - IVPUSH 40 mg DAILY [facility] Administration Insulin Aspart 1 vial 03/15/17 11:00 03/21/17 22:05 Novolog Vial Sliding Scale - SQ 2 units ACHS [facility] Administration Protocol Insulin Detemir 12 units 03/20/17 07:00 03/21/17 06:12 Levemir Vial SQ 12 units ACBK [facility] Administration Losartan Potassium 100 mg 03/16/17 10:00 03/21/17 09:36 Cozaar - PO 100 mg DAILY [facility] Administration Metoprolol Succinate 50 mg 03/21/17 14:15 03/21/17 14:24 Toprol Xl - PO 50 mg DAILY [facility] Administration Vitamin E 800 unit 03/16/17 07:00 03/21/17 06:12 Vitamin E - PO 800 unit AM [facility] Administration increase levemir 18 units am
[2017-03-22] MEDS ORDERED: INSULIN DETEMIR 100 UNITS/ML MDV SQ SCH (00:27)
[2017-03-22] MEDS ORDERED: PT OWN MED DRAWER 7, Y5N ONE (06:18)
[2017-03-22] MEDS: INSULIN SLIDING SCALE (NOVOLOG) 1 VIAL SQ SCH ×2 (06:40→12:07)
[2017-03-22] MEDS: VITAMIN E 400 INTERNATIONAL-UNITS CAPSULE (FP) PO SCH (06:42)
[2017-03-22] MEDS ORDERED: INSULIN (NOVOLOG) ASPART 100 UNITS/ML 10ML VIAL ONE ×2 (06:46→12:03)
[2017-03-22 07:27] LABS: MCH 22.9 pg (25.7-33.7); MCHC 31.6 g/dl (32.0-36.0); MEAN CELL VOLUME 72.7 fl (80-96); MEAN PLT VOLUME 9.1 fl (7.5-11.1); PLATELET COUNT 210 K/MM3 (134-434); RDW 25.6 % (11.6-15.6); WHITE BLOOD COUNT 4.4 K/mm3 (4.0-10.0)
[2017-03-22 08:19] LABS: ANION GAP 9 (8-16); BILIRUBIN,TOTAL 0.9 mg/dL (0.2-1.0); CALCIUM 8.6 mg/dL (8.5-10.1); CO2 26 mmol/L (21-32); GLUCOSE,RANDOM 140 mg/dL (74-106); SGOT/AST 33 U/L (15-37); SGPT/ALT 33 U/L (12-78); TOT PROT 7.5 g/dl (6.4-8.2)
[2017-03-22 08:20] LABS: ALBUMIN 2.9 g/dl (3.4-5.0); ALK PHOS 485 U/L (45-117); CREATININE 1.3 mg/dL (0.55-1.02); FREE T4 1.26 ng/dl (0.76-1.46)
[2017-03-22] MEDS: FUROSEMIDE 40 MG/4 ML INJECTABLE VIAL IVPUSH SCH (09:39)
[2017-03-22] MEDS: LOSARTAN POTASSIUM 50 MG TABLET (FP) PO SCH (09:39)
[2017-03-22] MEDS: amLODIPine BESYLATE 5 MG TABLET (FP) PO SCH (09:40)
[2017-03-22] MEDS: METOPROLOL SUCCINATE 50 MG TAB.SR.24H (FP) PO SCH (09:40)
--- NOTE | 2017-03-22 13:26 | PN ---
Progress Note, Physician History of Present Illness: Pt seen and examined at bedside. She is awake and alert. She denies shortness of breath. She is eager to go home. - Current Medication List Current Medications: Active Medications Albuterol/Ipratropium (Duoneb -) 1 amp NEB Q6H PRN Last Admin: 03/17/17 22:15 Dose: 1 amp Amlodipine Besylate (Norvasc -) 5 mg PO DAILY [facility] Last Admin: 03/22/17 09:40 Dose: 5 mg Furosemide (Lasix Injection -) 40 mg IVPUSH DAILY [facility] Last Admin: 03/22/17 09:39 Dose: 40 mg Insulin Aspart (Novolog Vial Sliding Scale -) 1 vial SQ ACHS [facility] PRN Reason: Protocol Last Admin: 03/22/17 12:07 Dose: Not Given Insulin Detemir (Levemir Vial) 18 units SQ ACBK [facility] Last Admin: 03/22/17 06:42 Dose: 18 units Losartan Potassium (Cozaar -) 100 mg PO DAILY [facility] Last Admin: 03/22/17 09:39 Dose: 100 mg Metoprolol Succinate (Toprol Xl -) 50 mg PO DAILY [facility] Last Admin: 03/22/17 09:40 Dose: 50 mg Vitamin E (Vitamin E -) 800 unit PO AM [facility] Last Admin: 03/22/17 06:42 Dose: 800 unit - Objective Vital Signs: Vital Signs Temperature 98 F 03/22/17 10:00 Pulse Rate 64 03/22/17 10:00 Respiratory Rate 18 03/22/17 10:00 Blood Pressure 157/85 03/22/17 10:00 O2 Sat by Pulse Oximetry (%) 100 03/22/17 09:00 Constitutional: Yes: Calm Eyes: Yes: Conjunctiva Clear HENT: Yes: Atraumatic Neck: Yes: Supple Cardiovascular: Yes: Regular Rate and Rhythm, S1, S2 Respiratory: Yes: CTA Bilaterally Gastrointestinal: Yes: Soft Genitourinary: Yes: WNL Musculoskeletal: Yes: WNL Edema: Yes Edema: LLE: 1+, RLE: 1+ Neurological: Yes: Oriented Psychiatric: Yes: Oriented Labs: CBC, BMP 03/22/17 05:45 03/22/17 05:45 Problem List - Problems (1) Diabetes Code(s): E11.9 - TYPE 2 DIABETES MELLITUS WITHOUT COMPLICATIONS Qualifiers: Diabetes mellitus type: type 2 Diabetes mellitus complication status: with unspecified complications (2) Hypertensive urgency Code(s): I16.0 - HYPERTENSIVE URGENCY (3) Renal insufficiency Code(s): N28.9 - DISORDER OF KIDNEY AND URETER, UNSPECIFIED (4) Anemia Code(s): D64.9 - ANEMIA, UNSPECIFIED Qualifiers: Anemia type: unspecified type Qualified Code(s): D64.9 - Anemia, unspecified (5) HTN (hypertension) Code(s): I10 - ESSENTIAL (PRIMARY) HYPERTENSION Qualifiers: Hypertension type: essential hypertension Qualified Code(s): I10 - Essential (primary) hypertension Assessment/Plan Current Medications Generic Name Dose Route Start Last Admin Trade Name Freq PRN Reason Stop Dose Admin Albuterol/Ipratropium 1 amp 03/17/17 21:55 03/17/17 22:15 Duoneb - NEB 1 amp Q6H PRN Administration Amlodipine Besylate 5 mg 03/15/17 10:00 03/22/17 09:40 Norvasc - PO 5 mg DAILY [facility] Administration Furosemide 40 mg 03/16/17 10:00 03/22/17 09:39 Lasix Injection - IVPUSH 40 mg DAILY [facility] Administration Insulin Aspart 1 vial 03/15/17 11:00 03/22/17 12:07 Novolog Vial Sliding Scale - SQ Not Given ACHS [facility] Protocol Insulin Detemir 18 units 03/22/17 00:27 03/22/17 06:42 Levemir Vial SQ 18 units ACBK [facility] Administration Losartan Potassium 100 mg 03/16/17 10:00 03/22/17 09:39 Cozaar - PO 100 mg DAILY [facility] Administration Metoprolol Succinate 50 mg 03/21/17 14:15 03/22/17 09:40 Toprol Xl - PO 50 mg DAILY [facility] Administration Vitamin E 800 unit 03/16/17 07:00 03/22/17 06:42 Vitamin E - PO 800 unit AM [facility] Administration Impression 1. STEFFI/CKD 2. hypertensive urgency 3. lower extremity edema 4. DM 5. obesity 6. microscopic hematuria 7. pulmonary hypertension Plan - renal function is improving - cont with lasix, will need diuretics on dicharge - discussed compliance with low salt diet - monitor bp - cardiology follow up - cont with losartan - pt can get renal workup as outpt - age appropriate screening Dr Yang
[2017-03-22 15:12] VITALS: BP 150/71; PULSE 69; TEMP 98
--- NOTE | 2017-03-22 15:55 | DS ---
Physical Examination Vital Signs: Vital Signs Temperature 98.0 F 03/22/17 15:11 Pulse Rate 69 03/22/17 15:11 Respiratory Rate 18 03/22/17 15:11 Blood Pressure 150/71 03/22/17 15:11 O2 Sat by Pulse Oximetry (%) 100 03/22/17 09:00 Constitutional: Yes: No Distress Eyes: Yes: WNL HENT: Yes: WNL, Other Neck: Yes: WNL Cardiovascular: Yes: WNL Respiratory: Yes: WNL Gastrointestinal: Yes: WNL Renal/: Yes: WNL Musculoskeletal: Yes: WNL Extremities: Yes: WNL Edema: No Peripheral Pulses WNL: Yes Integumentary: Yes: WNL Wound/Incision: Yes: Clean/Dry Neurological: Yes: WNL ...Motor Strength: WNL Psychiatric: Yes: WNL Labs: CBC, BMP 03/22/17 05:45 03/22/17 05:45 Discharge Summary Reason For Visit: HYPERTENSIVE URGENCY Current Active Problems Alkaline phosphatase elevation (Acute) Anasarca (Acute) Controlled diabetes mellitus with diabetic nephropathy, with long-term current use of insulin (Acute) Diabetes (Acute) Hypertensive urgency (Acute) Pulmonary hypertension (Acute) Pulmonary hypertension assoc with unclear multi-factorial mechanisms (Acute) Renal insufficiency (Acute) Procedures: Principal: echo Other Procedures: cardio/pulm workup, doing better, cont as outpatient with nephrology and cardio Condition: Improved - Instructions Diet, Activity, Other Instructions: see colton smith in 2-3 days renal/low sodium/ada Referrals: Attila Hickey MD [Primary Care Provider] - Disposition: HOME - Home Medications Comprehensive Discharge Medication List: Ambulatory Orders Ferrous Sulfate [Feosol] 325 mg PO BID #60 tab 03/12/15 Amlodipine Besylate [Norvasc -] 5 mg PO DAILY #30 tablet 03/22/17 Furosemide Injection [Lasix Injection -] 40 mg IVPUSH DAILY vial 03/22/17 Insulin (Levemir) [Levemir Vial] 15 units SQ BID #15 syringe 03/22/17 Losartan Potassium [Cozaar -] 50 mg PO DAILY #30 tablet MDD 1 03/22/17 Metoprolol Succinate [Toprol XL -] 50 mg PO DAILY #30 tab 03/22/17 Vitamin E - 800 unit PO AM #30 cap 03/22/17
--- NOTE | 2017-03-22 16:24 | PN ---
Progress Note, Physician Chief Complaint: Presently comfortable History of Present Illness: 47 F with poorly controlled DM, morbid obesity, HTN off medication admitted with volume overload, STEFFI and heart failure. THere is a prior history of arrhythmia but details are not known and she was treated medically and never advised to have ablation or cath. Echocardiogram here showed preserved LV systolic function with normal RV function and moderate pulm arterial HTN. On metoprolol she had frequent junctional bradycardia. TIt was stopped. Now noted to have recurrent SVT HR 140s-asymptomatic. 03/22/17 Remains asymptomatic. - Current Medication List Current Medications: Active Medications Albuterol/Ipratropium (Duoneb -) 1 amp NEB Q6H PRN Last Admin: 03/17/17 22:15 Dose: 1 amp Amlodipine Besylate (Norvasc -) 5 mg PO DAILY [facility] Last Admin: 03/22/17 09:40 Dose: 5 mg Furosemide (Lasix Injection -) 40 mg IVPUSH DAILY [facility] Last Admin: 03/22/17 09:39 Dose: 40 mg Insulin Aspart (Novolog Vial Sliding Scale -) 1 vial SQ ACHS [facility] PRN Reason: Protocol Last Admin: 03/22/17 12:07 Dose: Not Given Insulin Detemir (Levemir Vial) 18 units SQ ACBK [facility] Last Admin: 03/22/17 06:42 Dose: 18 units Losartan Potassium (Cozaar -) 100 mg PO DAILY [facility] Last Admin: 03/22/17 09:39 Dose: 100 mg Metoprolol Succinate (Toprol Xl -) 50 mg PO DAILY [facility] Last Admin: 03/22/17 09:40 Dose: 50 mg Vitamin E (Vitamin E -) 800 unit PO AM [facility] Last Admin: 03/22/17 06:42 Dose: 800 unit - Objective Vital Signs: Vital Signs Temperature 98.0 F 03/22/17 15:11 Pulse Rate 69 03/22/17 15:11 Respiratory Rate 18 03/22/17 15:11 Blood Pressure 150/71 03/22/17 15:11 O2 Sat by Pulse Oximetry (%) 100 03/22/17 09:00 Constitutional: Yes: Well Nourished, No Distress Neck: Yes: WNL Cardiovascular: Yes: Regular Rate and Rhythm, S1, S2 (No MRHG) Extremities: Yes: WNL (Improved edema) Neurological: Yes: Alert, Oriented (Grossly non focal) Labs: CBC, BMP 03/22/17 05:45 03/22/17 05:45 Assessment/Plan [facility] *LIVE* Well Diuressed Presently asymptomatic Agree with DC home on HCTZ 25 mg PO daily with out patient follow up
== END 2017-03-22 17:15 | disposition home or self-care (01) | DRG 305 ==
LOC: JER 11:26 → JERBED 17:14 → OBSVTOIN 18:39 → J4W 03-15 13:51
PROVIDERS: ADMIT Family Medicine; ATTEND Family Medicine
DX: I16.0 Hypertensive urgency (principal); Z68.42 Body mass index [BMI] 45.0-49.9, adult; N17.9 Acute kidney failure, unspecified; I47.1 Supraventricular tachycardia; E11.65 Type 2 diabetes mellitus with hyperglycemia; Z79.84 Long term (current) use of oral hypoglycemic drugs; D64.9 Anemia, unspecified; D25.9 Leiomyoma of uterus, unspecified; I27.2 Other secondary pulmonary hypertension; K76.0 Fatty (change of) liver, not elsewhere classified; E11.21 Type 2 diabetes mellitus with diabetic nephropathy; Z79.4 Long term (current) use of insulin; R60.1 Generalized edema; R31.29 Other microscopic hematuria; R16.0 Hepatomegaly, not elsewhere classified; D57.3 Sickle-cell trait; E66.01 Morbid (severe) obesity due to excess calories; E11.22 Type 2 diabetes mellitus with diabetic chronic kidney disease; I12.9 Hypertensive chronic kidney disease with stage 1 through stage 4 chronic kidney disease, or unspecified chronic kidney disease; N18.9 Chronic kidney disease, unspecified; R74.8 Abnormal levels of other serum enzymes
CPT/HCPCS: 36415; 71010-TC; 76700-TC; 76775-TC; 76856-TC; 80048; 80053; 80061; 81003; 81015; 82550; 82570; 82728; 82977; 83036; 83540; 83550; 83721; 83880; 84080; 84156; 84439; 84443; 84484; 84585; 85025; 85027; 85651; 86038; 86140; 86803; 86850; 86900; 86901; 87340; 93005; 93010; 93306-TC; 93970-TC; 94640; 99285-25; G0378; J1644